=== PATIENT | female | born 1935 | race Caucasian/White ===

== ENCOUNTER 2016-06-19 20:17 | Emergency (ER) | payer MEDICARE ==
--- NOTE | 2016-06-19 21:15 | ERPHSYRPT ---
- History of Present Illness Time Seen by Provider: 06/19/16 21:13 Source: patient Exam Limitations: no limitations Patient Subjective Stated Complaint: ON WEDNESDAY (3 DAYS AGO) PT DROPPED A VACUUM ON HER LEFT FOOT AND IT BEGAN HURTING TODAY AT AREA OF INJURY WELL PAIN INTO THE CALF. Triage Nursing Assessment: PT AMBULATORY TO EXAM ROOM, PT IS AOX3, RESPS EASY AND NON LABORED, PT IS PINK WARM AND DRY, NO TENTING NOTED TO THE SKIN, ISOLATED AREA OF SWELLING TO THE ANTERIOR LEFT FOOT, PEDAL PULSES PRESENT BILATERALLY Physician History: The patient is an 81-year-old female complaining of left foot pain for 3 days. 3 days ago she dropped a vacuum apparatus cleaner on the end of her left foot. She said it didn't hurt very much at the time. It is now beginning to hurt. She is on blood thinners and had compartment syndrome in the past. She is worried about compartment syndrome. After the injury she continued to walk on it as usual. Her past medical history is noncontributory except for the possible blood thinners. Method of Injury: direct blow Occurred: days ago (3) Quality: intermittent, aching Severity of Pain-Max: moderate Severity of Pain-Current: moderate Lower Extremities Pain: ankle: left Modifying Factors: Improves With: nothing Associated Symptoms: none Allergies/Adverse Reactions: Penicillins Allergy (Verified 06/19/16 20:42) Sulfa (Sulfonamide Antibiotics) Allergy (Verified 06/19/16 20:42) Home Medications: Aspirin EC 81 mg [Ecotrin 81 mg] 81 mg PO DAILY 10/03/12 [History] Levothyroxine Sodium 100 Mcg [Synthroid 100 Mcg] 112 mcg PO DAILY 10/03/12 [History] Metoprolol Succinate 25 mg Xl* [Toprol-Xl 25MG Tablets] 25 mg PO BID [History] Warfarin Sodium 2.5 mg [Coumadin 2.5 MG] 2.5 mg PO UD 10/03/12 [History] Warfarin Sodium 5 mg [Coumadin 5 MG] 5 mg PO UD 10/03/12 [History] Amlodipine Besylate [Norvasc] 2.5 mg PO DAILY 07/02/15 [History] Hx Tetanus, Diphtheria Vaccination/Date Given: No Hx Influenza Vaccination/Date Given: Yes Hx Pneumococcal Vaccination/Date Given: Yes - Review of Systems Constitutional: No Fever, No Chills Eyes: No Symptoms Ears, Nose, & Throat: No Symptoms Respiratory: No Cough, No Dyspnea Cardiac: No Chest Pain, No Edema, No Syncope Abdominal/Gastrointestinal: No Abdominal Pain, No Nausea, No Vomiting, No Diarrhea Genitourinary Symptoms: No Dysuria Musculoskeletal: Injury Skin: No Rash Neurological: No Dizziness, No Focal Weakness, No Sensory Changes Psychological: No Symptoms Endocrine: No Symptoms Hematologic/Lymphatic: No Symptoms Immunological/Allergic: No Symptoms All Other Systems: Reviewed and Negative - Past Medical History Pertinent Past Medical History: Yes Neurological History: TIA Cardiac History: Arrhythmia, High Cholesterol, Hypertension Endocrine Medical History: Hypothyroidism, Other Musculoskeletal History: Arthritis Other Medical History: MITRAL VALVE PROLAPSE, HODGKINS LYMPHOMA - Past Surgical History Past Surgical History: Yes Cardiac: Cardiac Catheterization Gastrointestinal: Appendectomy Musculoskeletal: Orthopedic Surgery Female Surgical History: Hysterectomy Other Surgical History: tonsillectomy - Social History Smoking Status: Never smoker Exposure to second hand smoke: No Drug Use: none Patient Lives Alone: Yes Significant Family History: no pertinent family hx - Nursing Vital Signs Nursing Vital Signs: Initial Vital Signs Temperature 97.6 F Temperature Source Oral Pulse Rate 77 Respiratory Rate 16 Blood Pressure [Right Arm] 150/75 Pain Intensity 1 - Physical Exam General Appearance: alert Eyes, Ears, Nose, Throat Exam: moist mucous membranes Neck Exam: non-tender, supple Cardiovascular/Respiratory Exam: chest non-tender, normal breath sounds, regular rate/rhythm, no respiratory distress Gastrointestinal/Abdominal Exam: non-tender, guarding Back Exam: normal inspection, No vertebral tenderness Hips Exam: bilateral: non-tender Legs Exam: bilateral leg: non-tender Knees Exam: bilateral knee: non-tender Ankle Exam: bilateral ankle: non-tender Foot Exam: right foot: non-tender, left foot: ecchymosis, pain, soft tissue tenderness Neuro/Tendon Exam: normal sensation, normal motor functions Mental Status Exam: alert, oriented x 3, cooperative Skin Exam: normal color, warm, dry SpO2 Interpretation: normal SpO2: 96 Oxygen Delivery: Room Air - Radiology Exams Left Foot X-ray Interpretation: Interpreted by me, Negative, No Fracture Ordered Tests: Active Orders 24 hr Category Date Time Status FOOT (MINIMUM 3 VIEWS) Stat Exams 06/19/16 21:15 Taken - Progress Progress: unchanged Counseled pt/family regarding: rad results - Departure Time of Disposition: 21:57 Departure Disposition: Home Clinical Impression: Foot contusion Condition: Stable Critical Care Time: No Additional Instructions: Tylenol as needed.
[2016-06-19 22:06] VITALS: BP 151/94; PULSE 74; O2SAT 98
--- NOTE | 2016-06-20 08:54 | XRAY ---
Indication: Third-fifth toe crush injury. Comparison: None 3 nonweightbearing views of the left foot demonstrates mild osteopenia, small plantar heel spur, and mild degenerative changes of the first metatarsocuneiform articulation. No other bony, articular, or soft tissue abnormalities.
== END 2016-06-19 22:05 | disposition home or self-care (01) ==
LOC: ED 20:17
DX: S90.32XA Contusion of left foot, initial encounter (principal); W20.8XXA Other cause of strike by thrown, projected or falling object, initial encounter; M79.662 Pain in left lower leg; Z79.01 Long term (current) use of anticoagulants; Z79.899 Other long term (current) drug therapy
CPT/HCPCS: 73630; 99282

== ENCOUNTER 2016-09-29 12:21 | Observation (INO) | payer MEDICARE ==
--- NOTE | 2016-09-29 13:02 | ERPHSYRPT ---
- History of Present Illness Time Seen by Provider: 09/29/16 12:40 Source: patient Exam Limitations: clinical condition Patient Subjective Stated Complaint: PT REPORTS SHE WAS WATCHING TV WHEN VISION CHANGED ET SHE COULDN'T SPEAK CORRECTLY-STATES THAT SHE COULDN'T SAY THE RIGHT WORDS-DENIES PAIN-DENIES NUMBNESS OR TINLGING-STATES THAT HER SPEECH IS BETTER NOW-INCIDENT HAPPENED JAN 1.5 HR AGO Triage Nursing Assessment: PT PALE WARM ET [id number] QUESTIONS CORRECTLY-PUPILS PINPOINT-NO ARM DRIFT NOTED-SLIGHT RIGHT FACIAL DROOP NOTED- SLIGHTLY SLURRED SPEECH NOTED-PT AMBULTORY TO ED Physician History: PATIENT WITH HISTORY OF HYPERTENSION, TRANSIENT ISCHEMIC ATTACKS COMPLAINS OF ACUTE ONSET 2 HOURS PREVIOUS TO ADMISSION OF VISUAL CHANGES, DSYARTHIA, SLURRED SPEECH AND NUMBNESS IN LEFT HAND. DENIES HEADACHE, FOCAL WEAKNESS IN EXTREMTIES. Timing/Duration: hour(s) Severity: moderate Character of Deficits: impaired speech, vision problems Deficits: no difficulties (SPEECH IMPROVING) Baseline/Normal Cognition: alert oriented x 3 Current Cognition: alert oriented x 3 Baseline Gait: walks w/o assistance Associated Symptoms: paresthesia (LEFT HAND) Allergies/Adverse Reactions: Penicillins Allergy (Verified 09/29/16 12:36) Sulfa (Sulfonamide Antibiotics) Allergy (Verified 09/29/16 12:36) Home Medications: Aspirin EC 81 mg [Ecotrin 81 mg] 81 mg PO DAILY 10/03/12 [History] Levothyroxine Sodium 100 Mcg [Synthroid 100 Mcg] 112 mcg PO DAILY 10/03/12 [History] Metoprolol Succinate 25 mg Xl* [Toprol-Xl 25MG Tablets] 25 mg PO BID [History] Warfarin Sodium 2.5 mg [Coumadin 2.5 MG] 2.5 mg PO UD 10/03/12 [History] Warfarin Sodium 5 mg [Coumadin 5 MG] 5 mg PO UD 10/03/12 [History] Amlodipine Besylate [Norvasc] 2.5 mg PO DAILY 07/02/15 [History] Hx Tetanus, Diphtheria Vaccination/Date Given: No Hx Influenza Vaccination/Date Given: Yes Hx Pneumococcal Vaccination/Date Given: Yes Immunizations Up to Date: Yes - Review of Systems Constitutional: No Fever, No Chills Eyes: Vision Changes Ears, Nose, & Throat: No Symptoms Respiratory: No Symptoms, No Cough, No Dyspnea Cardiac: No Symptoms, No Chest Pain, No Edema, No Syncope Abdominal/Gastrointestinal: No Symptoms, No Abdominal Pain, No Nausea, No Vomiting, No Diarrhea Genitourinary Symptoms: No Symptoms, No Dysuria Musculoskeletal: No Symptoms, No Back Pain, No Neck Pain Skin: No Symptoms, No Rash Neurological: No Dizziness, No Focal Weakness, No Sensory Changes Psychological: No Symptoms Endocrine: No Symptoms All Other Systems: Reviewed and Negative - Past Medical History Pertinent Past Medical History: Yes Neurological History: TIA Cardiac History: Arrhythmia, High Cholesterol, Hypertension Endocrine Medical History: Hypothyroidism, Other Musculoskeletal History: Arthritis Other Medical History: MITRAL VALVE PROLAPSE, HODGKINS LYMPHOMA - Past Surgical History Past Surgical History: Yes Cardiac: Cardiac Catheterization Gastrointestinal: Appendectomy Musculoskeletal: Orthopedic Surgery Female Surgical History: Hysterectomy Other Surgical History: tonsillectomy - Social History Smoking Status: Never smoker Exposure to second hand smoke: No Drug Use: none Patient Lives Alone: Yes Significant Family History: no pertinent family hx - Nursing Vital Signs Nursing Vital Signs: Initial Vital Signs Temperature 98.1 F Temperature Source Oral Pulse Rate 70 Respiratory Rate 20 Blood Pressure [] 145/82 Pain Intensity 0 - Kd Coma Scale Best Eye Response ([place]): (4) open spontaneously Best Verbal Response (Kd): (5) oriented Best Motor Response (Kd): (6) obeys commands [place] Total: 15 - Physical Exam General Appearance: no apparent distress, alert Eye Exam: bilateral eye: normal inspection, PERRL, EOMI Ears, Nose, Throat Exam: normal ENT inspection, moist mucous membranes Neck Exam: normal inspection, non-tender, supple Respiratory: normal breath sounds, lungs clear, airway intact, No respiratory distress Cardiovascular: regular rate/rhythm, No edema Gastrointestinal: soft, normal bowel sounds, No tenderness, No distention Back Exam: normal inspection Extremity Exam: normal inspection, No pedal edema Peripheral Pulses: carotid (R): 2+, carotid (L): 2+, femoral (R): 2+, femoral (L ): 2+, dorsalis-pedis (R): 2+ Mental Status: alert, oriented x 3 sports centre manager Exam: normal hearing, normal speech, PERRL, tongue midline Coordination/Gait: normal finger to nose, normal gait Skin Exam: normal color, warm, dry, No rash SpO2 Interpretation: normal SpO2: 96 Oxygen Delivery: Room Air - Course EKG Interpreted by Me: RATE, Sinus Rhythm, NORMAL AXIS (RATE OF 75), 1st degree AV Block - Radiology Exams Chest X-ray Interpretation: Reviewed by me, Negative - CT Exams Head CT Interpretation: Discussed w/radiologist, No/Intracranial Hemorrhag (THERE IS A NEW ASYMMETRIC HAZY OPACIFICATION IS SEEN THROUGHOUT THE MAJORITY OF THE LEFT MASTOID AIR CELLS) Ordered Tests: Active Orders 24 hr Category Date Time Status Up With Assistance ROUTINE Activity 09/29/16 14:20 Ordered Admission/Status Order ROUTINE Care 09/29/16 14:21 Ordered Call Admit Doctor for Orders ON ADMISSION Care 09/29/16 14:21 Ordered Student Loan Counselor STAT Care 09/29/16 12:53 Active Code Status Order ROUTINE Care 09/29/16 14:21 Ordered EKG-ER Only STAT Care 09/29/16 12:53 Active IV Care Q6H Care 09/29/16 14:21 Ordered IV Insertion STAT Care 09/29/16 12:53 Active Neuro Checks Q2H Care 09/29/16 14:20 Ordered Telemetry ROUTINE Care 09/29/16 14:20 Ordered Vital Signs Q4H Care 09/29/16 14:20 Ordered Low Sodium Diet 09/29/16 Dinner Ordered CHEST 1 VIEW (PORTABLE) Stat Exams 09/29/16 12:53 Completed HEAD WITHOUT CONTRAST [CT] Stat Exams 09/29/16 12:54 Completed BLOOD CULTURE Stat Lab 09/29/16 14:13 Ordered CBC W DIFF Stat Lab 09/29/16 12:30 Completed CMP Stat Lab 09/29/16 12:30 Completed MAG [MAGNESIUM] Stat Lab 09/29/16 12:30 Completed PROTIME WITH INR Stat Lab 09/29/16 12:30 Completed TROPONIN Q3H Lab 09/29/16 12:30 Completed TROPONIN Q3H Lab 09/29/16 16:00 Ordered TROPONIN Q3H Lab 09/29/16 19:00 Ordered TROPONIN Q3H Lab 09/29/16 22:00 Ordered TROPONIN Q3H Lab 09/30/16 01:00 Ordered UA W/RFX UR CULTURE Stat Lab 09/29/16 12:30 Completed Transfer Order Routine Transfer 09/29/16 14:20 Ordered Medication Summary Generic Name Dose Route Start Last Admin Trade Name Freq PRN Reason Stop Dose Admin Acetaminophen 650 mg 09/29/16 14:20 Tylenol 325 Mg PO 10/29/16 14:19 Q4H PRN PRN PAIN AND/OR FEVER Amlodipine Besylate 2.5 mg 09/30/16 10:00 Norvasc 5 Mg PO 10/30/16 09:59 QAM WILLIE Aspirin 81 mg 09/30/16 10:00 Ecotrin 81 Mg PO 10/30/16 09:59 DAILY WILLIE Sodium Chloride 1,000 mls @ 50 mls/hr 09/29/16 13:00 09/29/16 13:06 Sodium Chloride 0.9% 1000 Ml IV 10/29/16 12:59 100 mls/hr .Q20H WILLIE Administration Levofloxacin/Dextrose 500 mg in 100 mls @ 100 mls/hr 09/29/16 14:14 09/29/16 14:22 Levofloxacin 500mg/100ml D5w IV 09/29/16 15:13 100 mls/hr STAT STA Administration Discontinued Medications Generic Name Dose Route Start Last Admin Trade Name Zohaib PRN Reason Stop Dose Admin Levofloxacin/Dextrose Confirm 09/29/16 14:17 Levofloxacin 500mg/100ml D5w Administered 09/29/16 14:18 Dose 500 mg in 100 mls @ ud IV .[facility] Lab/Rad Data: Laboratory Result Diagrams 09/29/16 12:30 09/29/16 12:30 Laboratory Results 09/29/16 09/29/16 09/29/16 Range/Units 12:30 12:30 12:30 WBC (4.0-10.5) K/mm3 RBC (4.1-5.4) M/mm3 Hgb (12.0-16.0) gm/dl Hct (35-47) % MCV (78-100) fl MCH (26-32) pg MCHC (32-36) g/dl RDW (11.5-14.0) % Plt Count (150-450) K/mm3 MPV (6-9.5) fl Gran % (36.0-66.0) % Lymphocytes % (24.0-44.0) % Monocytes % (0.0-12.0) % Eosinophils % (0.00-5.0) % Basophils % (0.0-0.4) % Basophils # (0-0.4) INR 2.01 (0.8-3.0) Sodium (136-145) mEq/L Potassium (3.5-5.1) mEq/L Chloride (98-107) mEq/L Carbon Dioxide (21-32) mEq/L Anion Gap (5-15) MEQ/L BUN (9-20) mg/dL Creatinine (0.55-1.30) mg/dl Estimated GFR ML/MIN Glucose (70-110) MG/DL Calcium (8.5-10.1) mg/dL Magnesium 2.0 (1.8-2.4) mg/dL Total Bilirubin (0.2-1.0) mg/dL AST (15-37) U/L ALT (12-78) U/L Alkaline Phosphatase (46-116) U/L Troponin I < 0.017 (0.000-0.056) ng/ml Serum Total Protein (6.4-8.2) gm/dL Albumin (3.4-5.0) g/dL Ur Collection Type Urine Color (YELLOW) Urine Appearance (CLEAR) Urine pH (5-6) Ur Specific [place] (1.005-1.025) Urine Protein (Negative) Urine Glucose (UA) (NEGATIVE) mg/dL Urine Ketones (NEGATIVE) Urine Nitrite (NEGATIVE) Urine Bilirubin (NEGATIVE) Urine Urobilinogen (0-1) mg/dL Urine WBC (Auto) (NEGATIVE) Urine RBC (Auto) (0-5) Jeff/ul Specimen Received 09/29/16 09/29/16 09/29/16 Range/Units 12:30 12:30 12:30 WBC 8.8 (4.0-10.5) K/mm3 RBC 4.35 (4.1-5.4) M/mm3 Hgb 13.7 (12.0-16.0) gm/dl Hct 41.0 (35-47) % MCV 94.3 (78-100) fl MCH 31.5 (26-32) pg MCHC 33.4 (32-36) g/dl RDW 14.2 H (11.5-14.0) % Plt Count 240 (150-450) K/mm3 MPV 10.8 H (6-9.5) fl Gran % 59.9 (36.0-66.0) % Lymphocytes % 25.4 (24.0-44.0) % Monocytes % 12.5 H (0.0-12.0) % Eosinophils % 1.5 (0.00-5.0) % Basophils % 0.7 (0.0-0.4) % Basophils # 0.06 (0-0.4) INR (0.8-3.0) Sodium 139 (136-145) mEq/L Potassium 4.1 (3.5-5.1) mEq/L Chloride 104 (98-107) mEq/L Carbon Dioxide 25.7 (21-32) mEq/L Anion Gap 13.7 (5-15) MEQ/L BUN 15 (9-20) mg/dL Creatinine 0.87 (0.55-1.30) mg/dl Estimated GFR > 60 ML/MIN Glucose 106 (70-110) MG/DL Calcium 9.3 (8.5-10.1) mg/dL Magnesium (1.8-2.4) mg/dL Total Bilirubin 0.70 (0.2-1.0) mg/dL AST 25 (15-37) U/L ALT 28 (12-78) U/L Alkaline Phosphatase 74 (46-116) U/L Troponin I (0.000-0.056) ng/ml Serum Total Protein 7.1 (6.4-8.2) gm/dL Albumin 3.5 (3.4-5.0) g/dL Ur Collection Type VOID Urine Color YELLOW (YELLOW) Urine Appearance CLEAR (CLEAR) Urine pH 7.0 (5-6) Ur Specific [place] 1.015 (1.005-1.025) Urine Protein NEGATIVE (Negative) Urine Glucose (UA) NEGATIVE (NEGATIVE) mg/dL Urine Ketones NEGATIVE (NEGATIVE) Urine Nitrite NEGATIVE (NEGATIVE) Urine Bilirubin NEGATIVE (NEGATIVE) Urine Urobilinogen 0.2 (0-1) mg/dL Urine WBC (Auto) NEGATIVE (NEGATIVE) Urine RBC (Auto) NEGATIVE (0-5) Jeff/ul Specimen Received 09/29/16 1230 - Progress Progress Note: 09/29/16 14:17 PATIENT ADMINISTERED IV LEVAQUIN 500MG AFTER 2 SETS OF BLOOD CULTURES OBTAINED Discussed with Dr.: Armas (DISCUSSED WITH DR ARMAS AT 1405 FOR ADMISSION) - Departure Time of Disposition: 14:25 Departure Disposition: Observation Clinical Impression: TRANSIENT ISCHEMIA ATTACK, LEFT MASTOIDITIS Condition: Stable Critical Care Time: No Referrals: KIERSTEN ARMAS [Primary Care Provider] -
[2016-09-29] MEDS: Sodium Chloride 0.9% 1000 ML 1,000 ML IV SCH (13:06)
[2016-09-29 13:07] LABS: INR 2.01 (0.8-3.0); PROTIME 22.1 SECONDS (9.95-12.35)
[2016-09-29 13:08] LABS: BASOPHIL % 0.7 % (0.0-0.4); Eosinophil % 1.5 % (0.00-5.0); Granulocytes % 59.9 % (36.0-66.0); Lymphocytes % 25.4 % (24.0-44.0); Mean Cell Volume 94.3 fl (78-100); Mean Corpuscular Hemoglobin 31.5 pg (26-32); Mean Platelet Volume 10.8 fl (6-9.5); Monocytes % 12.5 % (0.0-12.0); Platelet Count 240 K/mm3 (150-450); Red Blood Count 4.35 M/mm3 (4.1-5.4); Red Cell Distribution Width 14.2 % (11.5-14.0); White Blood Count 8.8 K/mm3 (4.0-10.5)
[2016-09-29 13:17] LABS: ALBUMIN 3.5 g/dL (3.4-5.0); ALKALINE PHOSPHATASE 74 U/L (46-116); ANION GAP 13.7 MEQ/L (5-15); BLOOD UREA NITROGEN 15 mg/dL (9-20); CHLORIDE 104 mEq/L (98-107); Carbon Dioxide 25.7 mEq/L (21-32); Glucose 106 MG/DL (70-110); Potassium 4.1 mEq/L (3.5-5.1); SGOT/AST 25 U/L (15-37); SGPT/ALT 28 U/L (12-78); SODIUM 139 mEq/L (136-145); Total Protein 7.1 gm/dL (6.4-8.2)
--- NOTE | 2016-09-29 13:43 | XRAY ---
Exam: AP upright portable chest film from 1:05 PM on 09/29/2016. Comparison: AP upright portable chest film from 10/03/2012. Indication: Dyspnea. Findings: The transverse heart size is normal. A few small granulomatous calcifications are seen adjacent to the aortic knob on the left and within the right upper lung field. These are unchanged. There is some mild chronic central bronchial wall thickening present. Also, chronic right apical pleural/parenchymal scarring is seen representing no change from 2013. No acute air space infiltrates, vascular congestion, pneumothorax, or pleural fluid is seen. The visualized bones appear grossly intact. Impression: 1. No focal pneumonic infiltrates, heart failure/pulmonary edema, or other acute cardiopulmonary disease is seen. 2. Some chronic findings are seen as discussed above.
[2016-09-29 13:54] LABS: ADD URINE CULTURE? NO (NO); COMPLETE URINE MICROSCOPIC? NO; Collection Type VOID
--- NOTE | 2016-09-29 14:00 | XRAY ---
Exam: CT of the head without IV contrast from 09/29/2016. CTDI: 70.10 Comparison: CT of the head without and with IV contrast from 03/23/2016. Indication: Slurred speech, blurred vision, pain on left side of head as well as on top of head. Technique: Non-IV contrast axial images were obtained through the brain. Reconstructed coronal and sagittal images were created and reviewed. Findings: The ventricles are of unremarkable size and configuration representing no change. Small bilateral basal ganglia calcifications are again seen. No acute intracranial bleed or abnormal extra-axial fluid collection is seen. There is some scattered decreased attenuation within the periventricular and subcortical white matter bilaterally suggestive of chronic small vessel ischemic disease. This appears similar to 03/23/2016. A new discrete low-attenuation density to suggest an acute focal or territorial infarct is not seen. Atherosclerotic vascular calcification is seen within the carotid siphons as well as the distal left vertebral artery. The calvarium of the skull appears intact. The visualized paranasal sinuses remain clear. However, there is some new hazy opacification throughout the majority of the left mastoid air cells as compared to 03/23/2016. This could be due to some left mastoid effusion or mastoiditis. Correlate clinically. The mastoid air cells on the right are well-aerated. The globes of each eye, optic nerves, and visualized extraocular muscles appear grossly unremarkable. Impression: 1. I see no acute intracranial bleed or new low attenuation density to suggest an acute infarct. 2. New asymmetric hazy opacification is seen throughout the majority of the left mastoid air cells which may be due to mastoid effusion or mastoiditis. Correlate clinically. 3. Some chronic small vessel ischemic is is again seen representing no change from 03/23/2016.
[2016-09-29] MEDS ORDERED: Levofloxacin 500MG/100ML D5W 500 MG/100 ML BAG IV STA (14:14)
[2016-09-29] MEDS ORDERED: Levofloxacin 500MG/100ML D5W 500 MG/100 ML BAG IV ONE (14:17)
[2016-09-29] MEDS ORDERED: TYLENOL 325 MG PO PRN (14:20)
[2016-09-29] MEDS ORDERED: Coumadin 2.5 MG PO SCH (18:00)
[2016-09-29] MEDS ORDERED: Coumadin 5 MG*** 5 MG, Coumadin 2.5 MG*** 2.5 MG PO SCH ×2 (18:00)
[2016-09-29] MEDS: Toprol-Xl 25MG Tablets PO SCH (21:46)
[2016-09-30] MEDS: Sodium Chloride 0.9% 1000 ML 1,000 ML IV SCH (04:02)
[2016-09-30 07:04] VITALS: O2SAT 97
--- NOTE | 2016-09-30 08:43 | PCM.SSS ---
History of Present Illness - Chief Complaint Chief Complaint: ?TIA History of Present Illness: is a 81 year old female pt of mine from [facility], with afib and mild HTN but very active, who had an episode yesterday with visual changes and dysphasia. She was watching TV after doing a bit of work at home and her vision looked like "tire treads." Then she was talking but the words that came out were not the words that she intended. No paresthesias, no weakness. This lasted perhaps half an hour; by the time she got to the ER it was resolved. This has happened occasionally in the past and she had an MRI brain over a year ago with no finding that she is aware of. - Review of Systems Eyes: Vision Changes Ears, Nose, & Throat: Ear Pain (improved but some popping and discomfort (L)) Neurological: Speech Changes All Other Systems: Reviewed and Negative Medications & Allergies Home Medications: Home Medication List Aspirin EC 81 mg [Ecotrin 81 mg] 81 mg PO DAILY 10/03/12 [History Confirmed 09/29/16] Levothyroxine Sodium 100 Mcg [Synthroid 100 Mcg] 112 mcg PO DAILY 10/03/12 [History Confirmed 09/29/16] Metoprolol Succinate 25 mg Xl* [Toprol-Xl 25MG Tablets] 25 mg PO BID [History Confirmed 09/29/16] Warfarin Sodium 2.5 mg [Coumadin 2.5 MG] 2.5 mg PO UD 10/03/12 [History Confirmed 09/29/16] Warfarin Sodium 5 mg [Coumadin 5 MG] 5 mg PO UD 10/03/12 [History Confirmed 09/29/16] Amlodipine Besylate [Norvasc] 2.5 mg PO DAILY 07/02/15 [History Confirmed ] Allergies/Adverse Reactions: Allergies Allergy/AdvReac Type Severity Reaction Status Date / Time Penicillins Allergy Verified 09/29/16 12:36 Sulfa (Sulfonamide Allergy Verified 09/29/16 12:36 Antibiotics) - Past Medical History Past Medical History: Yes Neurological History: TIA Cardiac History: Arrhythmia, High Cholesterol, Hypertension Respiratory History: No Pertinent History Endocrine Medical History: Hypothyroidism, Other Musculoskelatal History: Arthritis GI Medical History: Gallbladder Disease Comment: MITRAL VALVE PROLAPSE, HODGKINS LYMPHOMA, breast reduction, oophroectomy, hystrectomy, hand surgery, 4 heart cath - Female History Hx Last Menstrual Period: postmenopausal Are you now?: No - Past Surgical History Past Surgical History: Yes Cardiac History: Cardiac Catheterization GI Surgical History: Appendectomy Musculskeletal Surgical Hx: Orthopedic Surgery Female Surgical History: Hysterectomy Other Surgical History: tonsillectomy - Social History Smoking Status: Never smoker Exposure to second hand smoke: No Alcohol: None Drug Use: none Significant Family History: no pertinent family hx - Physical Exam Vital Signs: Vital Signs - 24 hr Temp Pulse Resp BP Pulse Ox 09/30/16 07:03 97.8 F 65 20 107/55 97 09/30/16 04:40 97.6 F 67 18 118/56 95 09/30/16 04:00 97.6 F 67 18 118/56 95 09/29/16 23:45 97.7 F 74 18 111/60 95 09/29/16 20:00 97.7 F 71 20 141/72 96 09/29/16 17:09 98 F 69 22 148/72 93 L 09/29/16 14:43 98 F 76 20 103/98 95 09/29/16 14:25 96 09/29/16 13:50 70 20 145/82 98 09/29/16 13:16 80 20 97 09/29/16 12:33 98.1 F 76 18 155/94 96 09/29/16 12:32 98.1 F 76 18 155/94 96 General Appearance: no apparent distress Neurologic Exam: alert, oriented x 3, cooperative, photo mask cleaner II-XII nml as tested Eye Exam: PERRL/EOMI, eyes nml inspection Ears, Nose, Throat Exam: other (R TM obscured by wax; L TM wnl. no mastoid tenderness on L) Neck Exam: normal inspection, non-tender, No lymphadenopathy Respiratory Exam: normal breath sounds, lungs clear, No crackles/rales, No rhonchi, No wheezing Cardiovascular Exam: regular rate/rhythm, normal heart sounds, No murmur Gastrointestinal/Abdomen Exam: soft, normal bowel sounds, No tenderness, No distention Extremity Exam: normal inspection, No pedal edema, No swelling Skin Exam: normal color, warm, dry Results - Labs Lab/Micro Results: Lab Results-Last 24 Hours 09/29/16 09/29/16 09/29/16 Range/Units 16:11 19:15 22:19 Troponin I < 0.017 < 0.017 < 0.017 (0.000-0.056) ng/ml 09/30/16 Range/Units 01:15 Troponin I < 0.017 (0.000-0.056) ng/ml - Radiology Impressions Radiology Exams & Impressions: Radiology Procedures Category Date Time Status CAROTID BILATERAL [US] Routine Exams 09/30/16 08:00 Ordered ECHO W/2D AND DOPPLER [US] Routine Exams 09/30/16 08:00 Ordered Assessment/Plan (1) Transient ischemic attack (TIA) Current Visit: Yes Status: Acute Assessment & Plan: possible. CT in ER without acute changes. Doppler and echo ordered. Will do MRI, but pt will require sedation. Will consult with neurology outpatient. (2) Hypertension Current Visit: Yes Status: Acute Qualifiers: Hypertension type: essential hypertension Qualified Code(s): I10 - Essential (primary) hypertension Assessment & Plan: stable on current meds. A bit low this morning at 107/55 but pt is asymptomatic. Code(s): I10 - ESSENTIAL (PRIMARY) HYPERTENSION Hospital Summary - Hospital Course Hospital Course: Pt admitted with possible TIA symptoms including visual changes and speech changes, which resolved in 30 minutes. Dopper carotids, echo, and MRI to be done. F/u outpatient with neurology. - Vitals & Intake/Output Vital Signs: Vital Signs Temperature 97.8 F 09/30/16 07:03 Pulse Rate 65 09/30/16 07:03 Respiratory Rate 20 09/30/16 07:03 Blood Pressure 107/55 09/30/16 07:03 O2 Sat by Pulse Oximetry 97 09/30/16 07:03 Intake & Output: Intake & Output 09/27/16 09/28/16 09/29/16 09/30/16 11:59 11:59 11:59 11:59 Intake Total 1167 Output Total 2250 Balance -1083 Weight 71.668 kg - Lab Result Diagrams: 09/29/16 12:30 09/29/16 12:30 Lab Results-Last 24 Hrs: Lab Results-Last 24 Hours 09/29/16 09/29/16 09/29/16 Range/Units 16:11 19:15 22:19 Troponin I < 0.017 < 0.017 < 0.017 (0.000-0.056) ng/ml 09/30/16 Range/Units 01:15 Troponin I < 0.017 (0.000-0.056) ng/ml - Radiology Exams Ordered Rad Exams-Entire Visit: Radiology Procedures Category Date Time Status CAROTID BILATERAL [US] Routine Exams 09/30/16 08:00 Ordered ECHO W/2D AND DOPPLER [US] Routine Exams 09/30/16 08:00 Ordered - Discharge Disposition: Home, Self-Care Condition: Stable Prescriptions: No Action Metoprolol Succinate 25 mg Xl* [Toprol-Xl 25MG Tablets] 25 mg PO BID Aspirin EC 81 mg [Ecotrin 81 mg] 81 mg PO DAILY Levothyroxine Sodium 100 Mcg [Synthroid 100 Mcg] 112 mcg PO DAILY Warfarin Sodium 2.5 mg [Coumadin 2.5 MG] 2.5 mg PO UD Warfarin Sodium 5 mg [Coumadin 5 MG] 5 mg PO UD Amlodipine Besylate [Norvasc] 2.5 mg PO DAILY Follow up with: KIERSTEN HELMS [Primary Care Provider] -
[2016-09-30] MEDS ORDERED: Ativan 2 MG/1 ML VIAL IV ONE (08:56)
[2016-09-30] MEDS: Toprol-Xl 25MG Tablets PO SCH (09:54)
[2016-09-30] MEDS ORDERED: SYNTHROID 112 MCG PO SCH (10:00)
[2016-09-30] MEDS ORDERED: ECOTRIN 81 MG PO SCH (10:00)
[2016-09-30] MEDS ORDERED: Levofloxacin 500MG/100ML D5W 500 MG/100 ML BAG IV SCH (10:00)
[2016-09-30] MEDS ORDERED: SYNTHROID 100 MCG PO SCH (10:00)
[2016-09-30] MEDS ORDERED: NORVASC 5 MG PO SCH (10:00)
[2016-09-30] MEDS ORDERED: Ativan 2 MG/1 ML VIAL IV PRN (13:39)
--- NOTE | 2016-09-30 14:14 | XRAY ---
Exam: Duplex Doppler carotid ultrasound from 09/30/2016. Comparison: Duplex Doppler carotid ultrasound from 11/12/2014. Indication: TIA. Findings: On the right side, there is noted to be some mild fibrocalcific plaque at the posterior aspect of the prior small right internal carotid artery. This appears slightly increased as compared to 11/12/2014. Color flow images were obtained. Peak systolic flow velocities in centimeters per second measure 86.0 within the common carotid artery, 88.6 within the external carotid artery, 43.5 within the proximal internal carotid artery, and 63.6 within the distal internal carotid artery. The peak systolic flow velocity ratio between the right internal carotid artery and common carotid artery is 0.7 which is not increased. The right vertebral artery reveals antegrade flow, although the peak systolic flow velocity appears mildly decreased at 22.6 cm/s. This measured 44.3 cm/s on the exam from 11/12/2014. On the left side, there is some tortuosity of the common carotid artery. Minimal fibrous plaque is seen about both the anterior and posterior aspects of the carotid bulb. Color flow images were obtained as well. Peak systolic flow velocities in centimeters per second measure 76.8 within the common carotid artery, 63.6 within the external carotid artery, 52.6 within the proximal internal carotid artery, and 66.3 within the distal internal carotid artery. The peak systolic flow velocity ratio between the internal carotid artery and common carotid artery measures 0.9 which is also not increased. The left vertebral artery reveals antegrade flow with a peak systolic flow velocity of 42.4 cm/s. Impression: 1. No hemodynamically significant stenosis of 50% or greater diameter reduction is seen within either carotid artery. Fibrocalcific plaque at the posterior aspect of the proximal right internal carotid artery is mildly increased as compared to 11/12/2014. Otherwise, the carotid arteries appears similar to the previous study. 2. Both vertebral arteries reveal antegrade flow. There appears to be some mild decreased systolic flow velocity within the right vertebral artery as compared to the prior study. This measures 22.6 cm/s on the current study versus 44.3 cm/s on the previous study.
--- NOTE | 2016-09-30 15:55 | XRAY ---
Exam: MRI of the brain without and with 13 ML's of IV Magnevist from 09/30/2016. Comparison: CT of the head without IV contrast from 09/29/2016. Indication: Visual disturbances, speech issues, no extremity weakness, left ear pain. Technique: Multiplanar, multisequence MRI imaging through the brain was obtained both before and following IV contrast administration of Magnevist per normal protocol. Findings: The ventricles are of unremarkable size and are midline. No focal mass effect or midline shift is seen. There is some increased bilateral periventricular and subcortical signal intensities on the axial T2 FLAIR images, and to a lesser extent, the axial T2 propeller images. These findings are most likely due to chronic small vessel ischemic disease. The diffusion weighted images reveal no evidence of focal restricted diffusion to suggest an acute/subacute infarct. Incidentally, there is a 9 mm in width smooth, oval-shaped low signal intensity within the inner table of the skull just to the right of midline within the occipital bone on axial image #7 of sequence 7. This is bright on the T2-weighted images and is seen on axial image #8 of series #4. I believe this represents a small nonspecific pacchonian granulation (same as arachnoid granulation) within the inner table. The seventh and eighth cranial nerve complexes appear unremarkable. The major central cerebral arteries reveal normal flow voids in the skull [place] of [place] and within the distal vertebral basilar system. Images of the brainstem and posterior fossa are otherwise unremarkable. No abnormal focal brain enhancement is seen on the post-IV contrast images. No abnormal extra-axial fluid collections are seen. The globes of each eye, extraocular muscles, and optic nerves appear unremarkable. Incidentally, the T2 weighted images reveal increased signal intensity throughout the left mastoid air cells. This is consistent with inflammation/effusion, or mastoiditis. Some minimal increased signal intensity is seen within a small portion of the right mastoid air cells as well. In addition, there appears to be a retention cyst within the inferior aspect of the left maxillary sinus measuring 17 mm x 10 mm in cross section on axial image #3 of series #4. The remainder of the paranasal sinuses appears unremarkable. Impression: 1. Moderate bilateral periventricular and subcortical chronic small vessel ischemic disease is seen. However, the diffusion weighted images reveal no foci of restricted diffusion to suggest an acute or subacute infarct. 2. There is increased signal intensity throughout the left mastoid air cells suggestive of fluid/inflammation, or mastoiditis. Correlate clinically. I believe there is also some minimal increased signal intensity within a small portion of the right mastoid air cells. 3. Moderate sized retention cyst at the inferior aspect of left maxillary sinus. 4. Incidentally, there appears to be a small pacchonion/arachnoid radiating into radiating ago granulation just to the right of midline within the occipital bone. I believe this is incidental. 5. No other abnormal brain signal intensities or enhancing lesions are seen.
[2016-09-30 16:15] VITALS: BP 125/63; PULSE 72
[2016-09-30] MEDS ORDERED: Coumadin 5 MG PO SCH (18:00)
== END 2016-09-30 17:20 | disposition home or self-care (01) ==
LOC: ED 12:21 → MED SURG 14:42
PROVIDERS: ADMIT Family Medicine; ATTEND Family Medicine
DX: G45.9 Transient cerebral ischemic attack, unspecified (principal); I10 Essential (primary) hypertension; E03.9 Hypothyroidism, unspecified; Z79.01 Long term (current) use of anticoagulants; I34.1 Nonrheumatic mitral (valve) prolapse; M19.90 Unspecified osteoarthritis, unspecified site; Z79.899 Other long term (current) drug therapy
CPT/HCPCS: 36000; 36415; 70450; 70553; 71010; 80053; 81002; 83735; 84484; 85025; 85610; 87040; 93005; 93041; 93306; 93880; 96360; 96365; 99285; J1956; J2060; A9270-GY

== ENCOUNTER 2016-10-25 20:39 | Emergency (ER) | payer MEDICARE ==
[2016-10-25 21:04] VITALS: BP 142/80
[2016-10-25] MEDS ORDERED: MORPHINE SULFATE 4 MG INJ IV ONE (21:39)
--- NOTE | 2016-10-25 21:44 | ERPHSYRPT ---
- History of Present Illness Time Seen by Provider: 10/25/16 21:32 Source: patient Exam Limitations: no limitations Patient Subjective Stated Complaint: pt was having a good day when she noted neck pain followed by neck stiffness no numbness in arms -decreased pain when laying still - no injury no fever or chills no vomiting Triage Nursing Assessment: pt is resting quietly able to answer questions Physician History: This is a 81-year-old white female with history of TIA arrhythmias hyperlipidemia high blood pressure hypothyroidism arthritis mitral valve prolapse and Hodgkin's lymphoma She arrives with complaint of pain in her posterior neck and bilateral neck worse with turning her neck she states it is now going up her posterior head symptoms began at 5:30 when she was getting into the car after eating dinner. Pain is definitely worse with turning her head from side to side she does seem to be able to bend her chin down to her chest without any problems she has no fevers no nausea no vomiting no chest pain no shortness of breath. She denies any movement disorders or sensory loss. Past medical history includes TIA, arrhythmia, hyperlipidemia, high blood pressure, hypothyroidism, arthritis, mitral valve prolapse, Hodgkin's lymphoma. Past surgical history includes cardiac catheter, appendectomy, orthopedic surgery, hysterectomy and tonsillectomy patient has also had a breast reduction Timing/Duration: today (5:30 PM) Severity: moderate Modifying Factors: Improves With: movement (worse with turning her head from side to side) Associated Symptoms: No nausea, No vomiting, No abdominal pain, No shortness of breath, No heartburn, No diaphoresis, No cough, No chills, No chest pain, No fever, No headaches, No loss of appetite, No malaise, No rash, No syncope, No seizure, No weakness Allergies/Adverse Reactions: nortriptyline Allergy (Verified 10/25/16 21:14) Penicillins Allergy (Verified 10/25/16 21:14) Sulfa (Sulfonamide Antibiotics) Allergy (Verified 10/25/16 21:14) Home Medications: Aspirin EC 81 mg [Ecotrin 81 mg] 81 mg PO DAILY 10/03/12 [History] Levothyroxine Sodium 100 Mcg [Synthroid 100 Mcg] 112 mcg PO DAILY 10/03/12 [History] Metoprolol Succinate 25 mg Xl* [Toprol-Xl 25MG Tablets] 25 mg PO BID [History] Warfarin Sodium 2.5 mg [Coumadin 2.5 MG] 2.5 mg PO UD 10/03/12 [History] Warfarin Sodium 5 mg [Coumadin 5 MG] 5 mg PO UD 10/03/12 [History] Amlodipine Besylate [Norvasc] 2.5 mg PO DAILY 07/02/15 [History] Hx Tetanus, Diphtheria Vaccination/Date Given: No Hx Influenza Vaccination/Date Given: Yes Hx Pneumococcal Vaccination/Date Given: Yes - Review of Systems Eyes: No Symptoms Ears, Nose, & Throat: No Symptoms Respiratory: No Cough, No Dyspnea Cardiac: No Chest Pain, No Edema, No Syncope Abdominal/Gastrointestinal: No Abdominal Pain, No Nausea, No Vomiting, No Diarrhea Genitourinary Symptoms: No Dysuria Musculoskeletal: Other (neck pain bilateral neck and posterior neck radiating up back of head worse with turning head from side to side) Skin: No Rash Neurological: No Dizziness, No Focal Weakness, No Sensory Changes Psychological: No Symptoms Endocrine: No Symptoms All Other Systems: Reviewed and Negative - Past Medical History Pertinent Past Medical History: Yes Neurological History: Migraines, TIA Cardiac History: Arrhythmia, High Cholesterol, Hypertension Respiratory History: No Pertinent History Endocrine Medical History: Hypothyroidism, Other Musculoskeletal History: Arthritis, Other GI Medical History: Gallbladder Disease Other Medical History: MITRAL VALVE PROLAPSE, HODGKINS LYMPHOMA 19 yrs ago , breast reduction, oophroectomy, hystrectomy, hand surgery, 4 heart cath recently diagnosed with ocular migraines ,sciatica - Past Surgical History Past Surgical History: Yes Cardiac: Cardiac Catheterization Gastrointestinal: Appendectomy Musculoskeletal: Orthopedic Surgery Female Surgical History: Hysterectomy, Other Other Surgical History: tonsillectomy left had surgery right knee injected breast reduction 25 yrs ago - Social History Smoking Status: Never smoker Exposure to second hand smoke: No Drug Use: none Patient Lives Alone: Yes Significant Family History: no pertinent family hx - Female History Hx Last Menstrual Period: na - Nursing Vital Signs Nursing Vital Signs: Initial Vital Signs Temperature 98.3 F Temperature Source Oral Pulse Rate 80 Respiratory Rate 16 Blood Pressure [] 142/80 Pain Intensity [] 9 Pain Intensity 6 - Physical Exam General Appearance: no apparent distress, alert Eye Exam: PERRL/EOMI, eyes nml inspection Ears, Nose, Throat Exam: normal ENT inspection, TMs normal, pharynx normal, moist mucous membranes Neck Exam: other (Neck tender posterioly and bilaterally with turning head from side ) Respiratory Exam: normal breath sounds, lungs clear, No respiratory distress Cardiovascular Exam: regular rate/rhythm, normal heart sounds, normal peripheral pulses Gastrointestinal/Abdomen Exam: soft Back Exam: normal inspection, normal range of motion, No CVA tenderness, No vertebral tenderness Extremity Exam: normal inspection, normal range of motion, pelvis stable Neurologic Exam: alert, oriented x 3, cooperative, normal mood/affect, nml cerebellar function, nml station & gait, sensation nml, No motor deficits SpO2 Interpretation: normal (94%) SpO2: 94 Oxygen Delivery: Room Air - Course Nursing assessment & vital signs reviewed: Yes EKG Interpreted by Me: RATE (80 bpm), NORMAL AXIS, 1st degree AV Block (ekg: sinus rhythm with 1 st degree av block , 80 bpm, normal axis , no acute st or t wave abnormalities noted. compared to 09/29/2016) - CT Exams Head CT Interpretation: Tele-radiologist Report (head CT: Age related changes without evidence of acute proces) Cervical Spine CT Interpretation: Tele-radiologist Report (CT C-spine: Impression: No fractures or dislocation or other acute . Multilevel spondylitic changes, severe fibrotic lung disease) Ordered Tests: Active Orders 24 hr Category Date Time Status EKG-ER Only STAT Care 10/25/16 21:37 Active IV Insertion STAT Care 10/25/16 21:37 Active CERVICAL SPINE WO CONTRAST [CT] Stat Exams 10/25/16 21:37 Taken HEAD WITHOUT CONTRAST [CT] Stat Exams 10/25/16 21:37 Taken CBC W DIFF Stat Lab 10/25/16 21:45 Completed CMP Stat Lab 10/25/16 21:45 Completed Manual Differential NC Stat Lab 10/25/16 21:45 Completed PROTIME WITH INR Stat Lab 10/25/16 21:45 Completed PTT Stat Lab 10/25/16 21:45 Completed SED RATE [Erythrocyte Sedimentation Rate] Stat Lab 10/25/16 21:45 Completed Medication Summary Discontinued Medications Generic Name Dose Route Start Last Admin Trade Name Freq PRN Reason Stop Dose Admin Morphine Sulfate 4 mg 10/25/16 21:39 10/25/16 21:59 Morphine Sulfate 4 Mg Inj IV 10/25/16 21:40 4 mg STAT ONE Administration Morphine Sulfate Confirm 10/25/16 21:52 Morphine Sulfate 4 Mg Inj Administered 10/25/16 21:53 Dose 4 mg .ROUTE .STK-MED ONE Lab/Rad Data: Laboratory Result Diagrams 10/25/16 21:45 10/25/16 21:45 Laboratory Results 10/25/16 10/25/16 10/25/16 Range/Units 21:45 21:45 21:45 WBC 10.9 H (4.0-10.5) K/mm3 RBC 4.20 (4.1-5.4) M/mm3 Hgb 13.3 (12.0-16.0) gm/dl Hct 39.3 (35-47) % MCV 93.6 (78-100) fl MCH 31.7 (26-32) pg MCHC 33.8 (32-36) g/dl RDW 13.9 (11.5-14.0) % Plt Count 214 (150-450) K/mm3 MPV 10.5 H (6-9.5) fl Segmented Neutrophils 63 (36.0-66.0) % Lymphocytes (Manual) 22 L (24-44) % Monocytes (Manual) 9 (0.0-12.0) % Eosinophils (Manual) 1 (0.00-3.0) % Differential Comment NORMAL Atypical Lymphocytes 5 % Platelet Estimate NORMAL (NORMAL) ESR 9 (0-20) mm/hr INR 3.53 H (0.8-3.0) APTT 46.9 H (25.3-37.0) SECONDS Sodium (136-145) mEq/L Potassium (3.5-5.1) mEq/L Chloride (98-107) mEq/L Carbon Dioxide (21-32) mEq/L Anion Gap (5-15) MEQ/L BUN (9-20) mg/dL Creatinine (0.55-1.30) mg/dl Estimated GFR ML/MIN Glucose (70-110) MG/DL Calcium (8.5-10.1) mg/dL Total Bilirubin (0.2-1.0) mg/dL AST (15-37) U/L ALT (12-78) U/L Alkaline Phosphatase (46-116) U/L Serum Total Protein (6.4-8.2) gm/dL Albumin (3.4-5.0) g/dL 10/25/16 Range/Units 21:45 WBC (4.0-10.5) K/mm3 RBC (4.1-5.4) M/mm3 Hgb (12.0-16.0) gm/dl Hct (35-47) % MCV (78-100) fl MCH (26-32) pg MCHC (32-36) g/dl RDW (11.5-14.0) % Plt Count (150-450) K/mm3 MPV (6-9.5) fl Segmented Neutrophils (36.0-66.0) % Lymphocytes (Manual) (24-44) % Monocytes (Manual) (0.0-12.0) % Eosinophils (Manual) (0.00-3.0) % Differential Comment Atypical Lymphocytes % Platelet Estimate (NORMAL) ESR (0-20) mm/hr INR (0.8-3.0) APTT (25.3-37.0) SECONDS Sodium 142 (136-145) mEq/L Potassium 3.9 (3.5-5.1) mEq/L Chloride 106 (98-107) mEq/L Carbon Dioxide 24.9 (21-32) mEq/L Anion Gap 14.9 (5-15) MEQ/L BUN 21 H (9-20) mg/dL Creatinine 1.00 (0.55-1.30) mg/dl Estimated GFR 56 ML/MIN Glucose 114 H (70-110) MG/DL Calcium 9.0 (8.5-10.1) mg/dL Total Bilirubin 0.40 (0.2-1.0) mg/dL AST 17 (15-37) U/L ALT 27 (12-78) U/L Alkaline Phosphatase 69 (46-116) U/L Serum Total Protein 6.7 (6.4-8.2) gm/dL Albumin 3.5 (3.4-5.0) g/dL - Progress Progress: improved Progress Note: 10/25/16 23:43 Patient improved but not completely pain-free after [address] of the head no acute changes CT C-spine no acute fractures or dislocations, multiple spondylitic changes, fibrotic lung disease. Patient's labs essentially normal sedimentation rate is 9 INR just over 3 Patient with pain when she turns her head from side to side. Will go ahead and have nurses place a soft collar on the patient. Will write for [facility] for pain. Patient to follow-up with her family doctor. - Departure Time of Disposition: 23:45 Departure Disposition: Home Clinical Impression: Neck pain, Arthritis, Anticoagulant long-term use Condition: Fair Critical Care Time: No Additional Instructions: Return home. [facility] 5/325 #12 one orally every 4-6 hours as needed for pain. Follow-up with your family doctor. Return for acute distress or for severe symptoms. Prescriptions: Hydrocodone/Acetaminophen [[facility] 5-325 Tablet] 1 tab PO Q4-6HPRN PRN #12 tablet PRN Reason: Pain
[2016-10-25 21:51] LABS: Mean Cell Volume 93.6 fl (78-100); Mean Corpuscular Hemoglobin 31.7 pg (26-32); Mean Platelet Volume 10.5 fl (6-9.5); Platelet Count 214 K/mm3 (150-450); Red Cell Distribution Width 13.9 % (11.5-14.0); White Blood Count 10.9 K/mm3 (4.0-10.5)
[2016-10-25] MEDS ORDERED: MORPHINE SULFATE 4 MG INJ ONE (21:52)
[2016-10-25 22:04] LABS: INR 3.53 (0.8-3.0); PROTIME 40.4 SECONDS (9.95-12.35)
[2016-10-25 22:07] LABS: PTT 46.9 SECONDS (25.3-37.0)
[2016-10-25 22:12] LABS: ALBUMIN 3.5 g/dL (3.4-5.0); ANION GAP 14.9 MEQ/L (5-15); BILIRUBIN,TOTAL 0.4 mg/dL (0.2-1.0); Carbon Dioxide 24.9 mEq/L (21-32); Potassium 3.9 mEq/L (3.5-5.1); Total Protein 6.7 gm/dL (6.4-8.2)
[2016-10-25 23:17] LABS: ATYPICAL LYMPHS 5 %; Eosinophil 1 % (0.00-3.0); Platelet Estimate NORMAL (NORMAL); Total Cells Counted 100
[2016-10-26] MEDS: NORCO 5/325 MG PO ONE ×2 (00:04→00:05)
[2016-10-26 00:28] VITALS: PULSE 76; O2SAT 97
[2016-10-26] MEDS ORDERED: NORCO 5/325 MG ONE (06:40)
--- NOTE | 2016-10-26 09:03 | XRAY ---
Indication: Sudden onset pain. Multiple contiguous axial images obtained through the head without contrast. Comparison: September 29, 2016. Stable age-appropriate global atrophy and mild periventricular degenerative micro-ischemia. No acute intracranial hemorrhage, abnormal extra-axial fluid collection, or mass effect. Fourth ventricle is midline. No hydrocephalus. Bony calvarium intact. Visualized paranasal sinuses and mastoid air cells are clear. Impression: Stable nonacute senile brain. Comment: Preliminary interpretation was made by [facility]. No discrepancy. CT DI 70.38
--- NOTE | 2016-10-26 09:07 | XRAY ---
Indication: Sudden onset neck pain/stiffness. Multiple contiguous axial images obtained through the cervical spine. Sagittal and coronal reformatted images obtained. Comparison: None. Axial images demonstrates age-related osteopenia. No acute fracture, suspicious bony lesions, or spinal canal stenosis. Mild multilevel bilateral degenerative facet arthropathy. Sagittal and coronal reformatted images demonstrates lordotic straightening, positional versus paraspinal spasm. Mild C5-C6 disc space narrowing. No acute compression fracture, subluxation, or jumped facet. Normal-appearing craniocervical junction. Visualized noncontrasted soft tissues unremarkable. Lung apices demonstrates biapical fibrosis/scarring and calcified granulomas. Impression: 1. Negative acute fracture/subluxation. Lordotic straightening, positional versus paraspinal spasm. 2. Osteopenia and multilevel degenerative changes. 3. 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 Comment: Preliminary interpretation was made by [facility]. No discrepancy. CT DI 74.39
== END 2016-10-26 00:29 | disposition home or self-care (01) ==
LOC: ED 20:39
DX: M54.2 Cervicalgia (principal); M19.90 Unspecified osteoarthritis, unspecified site; Z79.01 Long term (current) use of anticoagulants; M43.6 Torticollis; E78.00 Pure hypercholesterolemia, unspecified; I10 Essential (primary) hypertension; E03.9 Hypothyroidism, unspecified
CPT/HCPCS: 36000; 36415; 70450; 72125; 80053; 85025; 85610; 85652; 85730; 93005; 96374; 99284; 99285; J2270; L0120; A9270-GY

== ENCOUNTER 2016-12-14 10:13 | Emergency (ER) | payer MEDICARE ==
--- NOTE | 2016-12-14 10:34 | ERPHSYRPT ---
- History of Present Illness Time Seen by Provider: 12/14/16 10:29 Historian: patient Exam Limitations: no limitations Physician History: The patient is an 81-year-old female with her daughter complaining of left- sided chest pain for 3 days. It was worse last night and this morning. She had some sweating and shortness of breath. She denies nausea. She took Tylenol without relief this morning. This is the same chest pain that she has frequently over the last several years. She has had 4 cardiac catheterizations that were negative. Her past medical history is significant for noncardiac chest pain, hypertension, atrial fibrillation, and hypothyroidism. Timing/Duration: day(s) (3) Activities at Onset: none Quality: sharpness Location: substernal Chest Pain Radiation: neck Severity of Pain-Max: moderate Severity of Pain-Current: moderate Modifying Factors: Improves With: nothing Associated Symptoms: shortness of breath, diaphoresis, No nausea Prior Chest Pain/Cardiac Workup: non-cardiac, cardiac cath Nitro Today/Relief: no nitro taken today Aspirin Treatment Today: no aspirin today Allergies/Adverse Reactions: nortriptyline Allergy (Verified 12/14/16 10:33) Penicillins Allergy (Verified 12/14/16 10:33) Sulfa (Sulfonamide Antibiotics) Allergy (Verified 12/14/16 10:33) Home Medications: Levothyroxine Sodium 100 Mcg [Synthroid 100 Mcg] 112 mcg PO DAILY 10/03/12 [History] Metoprolol Succinate 25 mg Xl* [Toprol-Xl 25MG Tablets] 25 mg PO BID [History] Amlodipine Besylate [Norvasc] 2.5 mg PO DAILY 07/02/15 [History] Apixaban [Eliquis] 5 mg PO BID 12/14/16 [History] Hx Tetanus, Diphtheria Vaccination/Date Given: No Hx Influenza Vaccination/Date Given: Yes Hx Pneumococcal Vaccination/Date Given: Yes - Review of Systems Constitutional: No Fever, No Chills Eyes: No Symptoms Ears, Nose, & Throat: No Symptoms Respiratory: No Cough, No Dyspnea Cardiac: Chest Pain Abdominal/Gastrointestinal: No Abdominal Pain, No Nausea, No Vomiting, No Diarrhea Genitourinary Symptoms: No Dysuria Musculoskeletal: No Back Pain, No Neck Pain Skin: No Rash Neurological: No Symptoms Psychological: No Symptoms Endocrine: No Symptoms Hematologic/Lymphatic: No Symptoms Immunological/Allergic: No Symptoms All Other Systems: Reviewed and Negative - Past Medical History Pertinent Past Medical History: Yes Neurological History: No Pertinent History Cardiac History: Arrhythmia Respiratory History: No Pertinent History Endocrine Medical History: Hypothyroidism Musculoskeletal History: Arthritis GI Medical History: Gallbladder Disease Other Medical History: Mitral valve prolapse - Past Surgical History Past Surgical History: Yes Cardiac: Cardiac Catheterization Gastrointestinal: Appendectomy Musculoskeletal: Orthopedic Surgery Female Surgical History: Hysterectomy, Other Other Surgical History: tonsillectomy left had surgery right knee injected breast reduction 25 yrs ago - Social History Smoking Status: Never smoker Exposure to second hand smoke: No Drug Use: none Patient Lives Alone: Yes Significant Family History: no pertinent family hx - Nursing Vital Signs Nursing Vital Signs: Initial Vital Signs Temperature 98.0 F 12/14/16 10:15 Pulse Rate 75 12/14/16 10:15 Respiratory Rate 18 12/14/16 10:15 Blood Pressure 152/81 12/14/16 10:15 O2 Sat by Pulse Oximetry 94 L 12/14/16 10:15 Pain Scale Pain Intensity 6 - Physical Exam General Appearance: no apparent distress, alert Eye Exam: PERRL/EOMI, eyes nml inspection Ears, Nose, Throat Exam: normal ENT inspection, moist mucous membranes Neck Exam: normal inspection, non-tender, supple, full range of motion Respiratory Exam: normal breath sounds, chest tenderness (Point tenderness to area under left breast that reproduces pt's chest pain.), lungs clear, No respiratory distress Cardiovascular Exam: regular rate/rhythm, murmur Gastrointestinal/Abdomen Exam: soft, No tenderness, No mass Pelvic Exam: not done Rectal Exam: not done Back Exam: normal inspection, No CVA tenderness, No vertebral tenderness Extremity Exam: normal inspection, normal range of motion Neurologic Exam: alert, oriented x 3, cooperative, normal mood/affect, sensation nml, No motor deficits Skin Exam: normal color, warm, dry SpO2 Interpretation: normal - Course EKG Interpreted by Me: RATE, NORMAL AXIS, NORMAL INTERVALS, NORMAL QRS, NORMAL ST-T, Other (no change compared to EKG 10/25/16) - Radiology Exams Chest X-ray Interpretation: Teleradiologist Report, Negative (stable nonacute chest per Dr Ferrara) Ordered Tests: Active Orders 24 hr Category Date Time Status Cripple Worker STAT Care 12/14/16 10:37 Active EKG-ER Only STAT Care 12/14/16 10:35 Active IV Insertion STAT Care 12/14/16 10:36 Active Pulse Oximetry (ED) STAT Care 12/14/16 10:37 Active CHEST 2 VIEWS (PA AND LAT) Stat Exams 12/14/16 10:36 Completed CBC W DIFF Stat Lab 12/14/16 10:30 Completed CMP Stat Lab 12/14/16 10:30 Completed NT PRO BNP Stat Lab 12/14/16 10:30 Completed TROPONIN Q3H Lab 12/14/16 10:30 Completed TROPONIN Q3H Lab 12/14/16 13:45 Ordered TROPONIN Q3H Lab 12/14/16 16:45 Ordered TROPONIN Q3H Lab 12/14/16 19:45 Ordered TROPONIN Q3H Lab 12/14/16 22:45 Ordered Medication Summary Discontinued Medications Generic Name Dose Route Start Last Admin Trade Name Freq PRN Reason Stop Dose Admin Aspirin 324 mg 12/14/16 10:36 12/14/16 10:57 Baby Aspirin 81 Mg Chew PO 12/14/16 10:37 324 mg STAT ONE Administration Lab/Rad Data: Laboratory Result Diagrams 12/14/16 10:30 12/14/16 10:30 Laboratory Results 12/14/16 12/14/16 12/14/16 Range/Units 10:30 10:30 10:30 WBC 7.6 (4.0-10.5) K/mm3 RBC 4.28 (4.1-5.4) M/mm3 Hgb 13.4 (12.0-16.0) gm/dl Hct 39.8 (35-47) % MCV 93.0 (78-100) fl MCH 31.3 (26-32) pg MCHC 33.7 (32-36) g/dl RDW 13.5 (11.5-14.0) % Plt Count 234 (150-450) K/mm3 MPV 10.5 H (6-9.5) fl Gran % 63.6 (36.0-66.0) % Lymphocytes % 21.2 L (24.0-44.0) % Monocytes % 13.0 H (0.0-12.0) % Eosinophils % 1.3 (0.00-5.0) % Basophils % 0.9 (0.0-0.4) % Basophils # 0.07 (0-0.4) Sodium 140 (136-145) mEq/L Potassium 4.2 (3.5-5.1) mEq/L Chloride 106 (98-107) mEq/L Carbon Dioxide 22.6 (21-32) mEq/L Anion Gap 15.5 H (5-15) MEQ/L BUN 13 (9-20) mg/dL Creatinine 0.73 (0.55-1.30) mg/dl Estimated GFR > 60 ML/MIN Glucose 101 (70-110) MG/DL Calcium 9.1 (8.5-10.1) mg/dL Total Bilirubin 0.40 (0.2-1.0) mg/dL AST 28 (15-37) U/L ALT 23 (12-78) U/L Alkaline Phosphatase 72 (46-116) U/L Troponin I < 0.017 (0.000-0.056) ng/ml NT-Pro-B Natriuret Pep 238 (0-450) pg/ml Serum Total Protein 6.9 (6.4-8.2) gm/dL Albumin 3.4 (3.4-5.0) g/dL - Progress Progress: improved Air Movement: good Blood Culture(s) Obtained: No Antibiotics given: No Counseled pt/family regarding: lab results, diagnosis, need for follow-up, rad results - Departure Time of Disposition: 11:43 Departure Disposition: Home Clinical Impression: Musculoskeletal chest pain Condition: Stable Critical Care Time: No Referrals: KIERSTEN HELMS [Primary Care Provider] - Additional Instructions: You have musculoskeletal chest pain. There was 1 area on your left chest that was very tender when I pushed on it. You were given aspirin 324 mg in the ER. Continued to take Tylenol 1000 mg every 6-8 hours as needed. Apply ice to the area as needed. Continue with your physical therapy. Follow-up as needed.
[2016-12-14] MEDS ORDERED: BABY ASPIRIN 81 MG CHEW PO ONE (10:36)
[2016-12-14 10:46] LABS: BASOPHIL % 0.9 % (0.0-0.4); Eosinophil % 1.3 % (0.00-5.0); Granulocytes % 63.6 % (36.0-66.0); Lymphocytes % 21.2 % (24.0-44.0); Mean Corpuscular Hemoglobin 31.3 pg (26-32); Mean Platelet Volume 10.5 fl (6-9.5); Platelet Count 234 K/mm3 (150-450); Red Blood Count 4.28 M/mm3 (4.1-5.4); Red Cell Distribution Width 13.5 % (11.5-14.0); White Blood Count 7.6 K/mm3 (4.0-10.5)
[2016-12-14 11:11] LABS: ALBUMIN 3.4 g/dL (3.4-5.0); ALKALINE PHOSPHATASE 72 U/L (46-116); ANION GAP 15.5 MEQ/L (5-15); BLOOD UREA NITROGEN 13 mg/dL (9-20); CHLORIDE 106 mEq/L (98-107); Carbon Dioxide 22.6 mEq/L (21-32); Glucose 101 MG/DL (70-110); Potassium 4.2 mEq/L (3.5-5.1); SGOT/AST 28 U/L (15-37); SGPT/ALT 23 U/L (12-78); SODIUM 140 mEq/L (136-145); Total Protein 6.9 gm/dL (6.4-8.2)
[2016-12-14 11:18] VITALS: O2SAT 96
--- NOTE | 2016-12-14 11:27 | XRAY ---
Indication: Chest pain. Comparison: September 29, 2016. PA/lateral chest again hyperinflated with a few calcified granulomas and biapical pleural-parenchymal scarring. No infiltrate, consolidation, or large effusion. Heart is not enlarged. Bony thorax intact again with osteopenia and degenerative changes. Impression: Stable nonacute chest with chronic features.
[2016-12-14 12:09] VITALS: BP 141/78; PULSE 74
[2016-12-14] MEDS ORDERED: BABY ASPIRIN 81 MG CHEW ONE (14:26)
== END 2016-12-14 12:09 | disposition home or self-care (01) ==
LOC: ED 10:13
DX: R07.89 Other chest pain (principal); I10 Essential (primary) hypertension; I48.91 Unspecified atrial fibrillation; E03.9 Hypothyroidism, unspecified; R06.02 Shortness of breath; R61 Generalized hyperhidrosis; Z79.899 Other long term (current) drug therapy; Z79.01 Long term (current) use of anticoagulants
CPT/HCPCS: 36000; 36415; 71020; 80053; 83880; 84484; 85025; 93005; 93041; 99284; A9270-GY

== ENCOUNTER 2017-05-25 13:16 | Emergency (ER) | payer MEDICARE ==
--- NOTE | 2017-05-25 14:03 | ERPHSYRPT ---
- History of Present Illness Time Seen by Provider: 05/25/17 13:44 Source: patient Patient Subjective Stated Complaint: to er c/o high blood pressure and episode of blurred vision at approx 1110 this morning. pt states blurred vision present for approx 20 min and has resided at this time. pt states also has "odd feeling to left leg" Triage Nursing Assessment: To er c/o high bp, blurred vision and vision loss. pt reports vision disturbance present for approx 20 min at 1110 today. PT has no vision loss at this time. PT denies any slurred speech issues at time of incident. pt p/w/d resp easy [id number] Physician History: CC: high blood pressure Hx: 82 y/o patient of Dr Armas/Jenelle with hx of afib, HTN, TIA. She takes eliquis. Last night she noted some tingling in left leg which is worse into the left arm today. At 11:10AM she had a 20 minute episode of visual disturbance in which she had blurry vision like looking thru glass. It is now resolved. 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 She has no headache. No injury. No focal weakness. She took her BP and it was high so she came to ER. Timing/Duration: today, yesterday Allergies/Adverse Reactions: nortriptyline Allergy (Verified 12/14/16 10:33) Penicillins Allergy (Verified 12/14/16 10:33) Sulfa (Sulfonamide Antibiotics) Allergy (Verified 12/14/16 10:33) Home Medications: Levothyroxine Sodium 100 Mcg [Synthroid 100 Mcg] 112 mcg PO DAILY 10/03/12 [History] Metoprolol Succinate 25 mg Xl* [Toprol-Xl 25MG Tablets] 25 mg PO BID [History] Amlodipine Besylate [Norvasc] 2.5 mg PO DAILY 07/02/15 [History] Apixaban [Eliquis] 5 mg PO BID 12/14/16 [History] Vitamin B Complex 1 each PO DAILY 05/25/17 [History] Hx Tetanus, Diphtheria Vaccination/Date Given: No Hx Influenza Vaccination/Date Given: Yes Hx Pneumococcal Vaccination/Date Given: Yes - Review of Systems Constitutional: No Fever, No Chills Eyes: Vision Changes (resolved now) Ears, Nose, & Throat: No Symptoms Respiratory: No Symptoms Cardiac: No Chest Pain Abdominal/Gastrointestinal: No Abdominal Pain, No Nausea, No Vomiting Neurological: Parasthesia (left arm and leg), No Focal Weakness All Other Systems: Reviewed and Negative - Past Medical History Pertinent Past Medical History: Yes Neurological History: No Pertinent History Cardiac History: Arrhythmia Respiratory History: No Pertinent History Endocrine Medical History: Hypothyroidism Musculoskeletal History: Arthritis GI Medical History: Gallbladder Disease Other Medical History: MVP. Hodgkin Lymphoma - Past Surgical History Past Surgical History: Yes Cardiac: Cardiac Catheterization Gastrointestinal: Appendectomy Musculoskeletal: Orthopedic Surgery Female Surgical History: Hysterectomy, Other Other Surgical History: tonsillectomy left had surgery right knee injected breast reduction 25 yrs ago - Social History Smoking Status: Never smoker Exposure to second hand smoke: No Drug Use: none Patient Lives Alone: Yes Significant Family History: no pertinent family hx - Nursing Vital Signs Nursing Vital Signs: Initial Vital Signs Temperature 98.4 F 05/25/17 13:30 Pulse Rate 77 05/25/17 13:30 Respiratory Rate 18 05/25/17 13:30 Blood Pressure 175/90 05/25/17 13:30 O2 Sat by Pulse Oximetry 98 05/25/17 13:30 Pain Scale Pain Intensity 4 - [place] Coma Scale Best Eye Response (Kd): (4) open spontaneously Best Verbal Response ([place]): (5) oriented Best Motor Response (Kd): (6) obeys commands [place] Total: 15 - Physical Exam General Appearance: alert, other (pleasant lady) Eye Exam: bilateral eye: PERRL Ears, Nose, Throat Exam: normal ENT inspection, moist mucous membranes Neck Exam: normal inspection, non-tender, supple Respiratory: normal breath sounds Cardiovascular: regular rate/rhythm Gastrointestinal: soft, No tenderness, No distention Extremity Exam: normal inspection, normal range of motion Mental Status: alert, oriented x 3, cooperative care team assistant Exam: normal hearing, normal speech, PERRL Motor/Sensory: no motor deficit, no sensory deficit, no pronator drift Skin Exam: warm, dry, No rash SpO2 Interpretation: normal SpO2: 98 Oxygen Delivery: Room Air Comments: She complains of subjective numbness left arm and leg - Course Nursing assessment & vital signs reviewed: Yes EKG Interpreted by Me: RATE (72), Sinus Rhythm, NORMAL AXIS, NORMAL INTERVALS ( [id number]), 1st degree AV Block, NORMAL QRS, NORMAL ST-T - Radiology Exams cxr X-ray Interpretation: Teleradiologist Report, Negative - CT Exams head CT Interpretation: Tele-radiologist Report (stable nonacute senile brain) Ordered Tests: Active Orders 24 hr Category Date Time Status Data Security Consultant STAT Care 05/25/17 13:58 Active EKG-ER Only STAT Care 05/25/17 13:56 Active IV Insertion STAT Care 05/25/17 13:56 Active NPO (ED) STAT Care 05/25/17 13:56 Active Pulse Oximetry (ED) STAT Care 05/25/17 13:56 Active Re-Check Vital Signs STAT Care 05/25/17 15:07 Active CHEST 1 VIEW (PORTABLE) Stat Exams 05/25/17 13:57 Completed HEAD WITHOUT CONTRAST [CT] Stat Exams 05/25/17 13:57 Completed CBC W DIFF Stat Lab 05/25/17 13:56 Completed CMP Stat Lab 05/25/17 13:56 Completed PROTIME WITH INR Stat Lab 05/25/17 13:56 Ordered PTT Stat Lab 05/25/17 13:56 Ordered Lab/Rad Data: Laboratory Result Diagrams 05/25/17 13:56 05/25/17 13:56 Laboratory Results 05/25/17 05/25/17 Range/Units 13:56 13:56 WBC 6.8 (4.0-10.5) K/mm3 RBC 4.37 (4.1-5.4) M/mm3 Hgb 13.5 (12.0-16.0) gm/dl Hct 40.8 (35-47) % MCV 93.4 (78-100) fl MCH 30.9 (26-32) pg MCHC 33.1 (32-36) g/dl RDW 13.3 (11.5-14.0) % Plt Count 211 (150-450) K/mm3 MPV 10.3 H (6-9.5) fl Gran % 60.8 (36.0-66.0) % Lymphocytes % 24.0 (24.0-44.0) % Monocytes % 13.0 H (0.0-12.0) % Eosinophils % 1.3 (0.00-5.0) % Basophils % 0.9 (0.0-0.4) % Basophils # 0.06 (0-0.4) Sodium 141 (136-145) mEq/L Potassium 4.5 (3.5-5.1) mEq/L Chloride 107 (98-107) mEq/L Carbon Dioxide 28.8 (21-32) mEq/L Anion Gap 9.8 (5-15) MEQ/L BUN 16 (9-20) mg/dL Creatinine 0.77 (0.55-1.30) mg/dl Estimated GFR > 60 ML/MIN Glucose 99 (70-110) MG/DL Calcium 9.3 (8.5-10.1) mg/dL Total Bilirubin 0.50 (0.2-1.0) mg/dL AST 20 (15-37) U/L ALT 23 (12-78) U/L Alkaline Phosphatase 76 (46-116) U/L Serum Total Protein 6.9 (6.4-8.2) gm/dL Albumin 3.6 (3.4-5.0) g/dL - Progress Progress Note: 05/25/17 15:29 Pt visiting with daughter. She ambulated to well. No focal neuro symptoms. BP much better. She is comfortable. She is stable to go home. She has seen cardiology, neurology, ophthalmology in the past regarding the visual spells. Appt with Dr Armas tomorrow at 11AM. Counseled pt/family regarding: lab results, diagnosis, need for follow-up, rad results - Departure Time of Disposition: 15:31 Departure Disposition: Home Clinical Impression: Visual disturbance, Hypertension, Anticoagulant long-term use Condition: Stable Critical Care Time: No Referrals: KIERSTEN ARMAS [Primary Care Provider] - Instructions: High Blood Pressure (DC) Additional Instructions: See DR Armas tomorrow at 11AM. \\Stay with family tonite. Return for problems. Record BP twice a day.
[2017-05-25 14:13] LABS: BASOPHIL % 0.9 % (0.0-0.4); Basophil (Absolute #) 0.06 (0-0.4); Eosinophil % 1.3 % (0.00-5.0); Eosinophil (Absolute #) 0.09 (0-0.5); Granulocyte Absolute (ANC) 4.12 (1.4-6.9); Granulocytes % 60.8 % (36.0-66.0); Hematocrit 40.8 % (35-47); Hemoglobin 13.5 gm/dl (12.0-16.0); Lymphocyte (Absolute #) 1.63 (1.0-4.6); Mean Cell Volume 93.4 fl (78-100); Mean Corpuscular Hemoglobin 30.9 pg (26-32); Mean Corpuscular Hgb Concent. 33.1 g/dl (32-36); Mean Platelet Volume 10.3 fl (6-9.5); Monocyte (Absolute #) 0.88 (0.0-1.3); Platelet Count 211 K/mm3 (150-450); Red Blood Count 4.37 M/mm3 (4.1-5.4); Red Cell Distribution Width 13.3 % (11.5-14.0); White Blood Count 6.8 K/mm3 (4.0-10.5)
[2017-05-25 14:22] VITALS: O2SAT 98
--- NOTE | 2017-05-25 14:40 | XRAY ---
Indication: Left-sided numbness and visual distortion. Atrial fibrillation. Multiple contiguous axial images obtained through the head without contrast. Comparison: October 25, 2014. Stable age-appropriate global atrophy and mild periventricular degenerative micro-ischemia bilaterally. No acute intracranial hemorrhage, abnormal extra-axial fluid collection, or mass effect. Fourth ventricle is midline without hydrocephalus. Bony calvarium intact. Visualized paranasal sinuses and mastoid air cells are clear. Impression: Stable nonacute senile brain. CT DI 70.00
--- NOTE | 2017-05-25 14:42 | XRAY ---
Indication: Left sided numbness. Atrial fibrillation. Comparison: December 14, 2016. Portable chest again demonstrates tiny calcified granulomas and biapical pleural-parenchymal scarring. Remaining lungs clear. Heart and mediastinal structures within normal limits for AP portable technique. Bony thorax intact again with mild osteopenia and degenerative changes. Impression: Stable nonacute chest with chronic features.
[2017-05-25 15:00] LABS: ALBUMIN 3.6 g/dL (3.4-5.0); ALKALINE PHOSPHATASE 76 U/L (46-116); ANION GAP 9.8 MEQ/L (5-15); BLOOD UREA NITROGEN 16 mg/dL (9-20); CHLORIDE 107 mEq/L (98-107); Calcium 9.3 mg/dL (8.5-10.1); Carbon Dioxide 28.8 mEq/L (21-32); Creatinine 1 0.77 mg/dl (0.55-1.30); EST GLOMERULAR FILTRATION RATE > 60 ML/MIN; Glucose 99 MG/DL (70-110); Potassium 4.5 mEq/L (3.5-5.1); SGOT/AST 20 U/L (15-37); SGPT/ALT 23 U/L (12-78); SODIUM 141 mEq/L (136-145); Total Protein 6.9 gm/dL (6.4-8.2)
[2017-05-25 15:09] LABS: INR 1.12 (0.8-3.0)
[2017-05-25 15:11] LABS: PTT 31.9 SECONDS (25.3-37.0)
[2017-05-25 15:24] VITALS: BP 127/53; PULSE 75
== END 2017-05-25 15:47 | disposition home or self-care (01) ==
LOC: ED 13:16
DX: H53.9 Unspecified visual disturbance (principal); I10 Essential (primary) hypertension; Z79.01 Long term (current) use of anticoagulants; Z79.899 Other long term (current) drug therapy; E03.9 Hypothyroidism, unspecified; M19.90 Unspecified osteoarthritis, unspecified site; I71.2 Thoracic aortic aneurysm, without rupture; C81.90 Hodgkin lymphoma, unspecified, unspecified site
CPT/HCPCS: 36000; 36415; 70450; 71045; 80053; 85025; 85610; 85730; 93005; 93041; 99284

== ENCOUNTER 2017-06-17 07:17 | Day surgery (SDC) | payer MEDICARE ==
--- NOTE | 2017-06-14 08:22 | HP ---
DATE OF SURGERY: 06/17/2017 ANTICIPATED PROCEDURE: Cholecystectomy. HISTORY OF PRESENT ILLNESS: A patient with upper abdominal discomfort. Ultrasound negative. HIDA scan at 26%. Options discussed with her and wished to proceed. PAST MEDICAL HISTORY: ALLERGIES: SULFA, PENICILLIN. MEDICATIONS: Coumadin, levothyroxine, metoprolol, aspirin. PAST SURGICAL HISTORY: Oophorectomy, tonsillectomy, cancer surgery, heart cath, hysterectomy. SOCIAL HISTORY: Negative. FAMILY HISTORY: Negative. REVIEW OF SYSTEMS: Atrial fibrillation, mitral valve prolapse, arthritis. PHYSICAL EXAMINATION: VITAL SIGNS: Normal. CHEST: Clear. COR: Regular. ABDOMEN: No palpable organomegaly or mass. IMPRESSION: Gallbladder dyskinesia. PLAN: Laparoscopic cholecystectomy.
[~2017-06-17 07:17] MED LIST: Lactated Ringers 1,000 ML IV ONE; Sensorcaine 0.25% 10 ML ONE
[2017-06-17] MEDS ORDERED: SUBLIMAZE 250 MCG/5 ML IJ ONE (07:18)
[2017-06-17] MEDS ORDERED: Ephedrine Sulfate 50 MG/ML IJ ONE (07:18)
[2017-06-17] MEDS ORDERED: BRIDION 200MG/2ML IV ONE (07:18)
[2017-06-17] MEDS ORDERED: PHENYLEPHRINE HCL IJ ONE (07:18)
[2017-06-17] MEDS ORDERED: Zemuron 100 MG/10 ML IJ ONE (07:18)
[2017-06-17] MEDS ORDERED: DIPRIVAN 200 MG/20 ML IV ONE (07:18)
[2017-06-17] MEDS ORDERED: Levofloxacin 500MG/100ML D5W 500 MG/100 ML BAG IV ONE (07:34)
[2017-06-17] MEDS ORDERED: Lactated Ringers 1,000 ML IV ONE (07:34)
[2017-06-17] MEDS ORDERED: Levofloxacin 500MG/100ML D5W 500 MG/100 ML BAG IV SCH (07:45)
[2017-06-17] MEDS ORDERED: Lactated Ringers 1,000 ML IV SCH (08:00)
[2017-06-17] MEDS ORDERED: CLINDAMYCIN-D5W 900 MG/50 ML*** 900 MG/50 ML BAG IV SCH (08:00)
[2017-06-17] MEDS ORDERED: SUBLIMAZE 100 MCG/2 ML ONE (11:05)
[2017-06-17 12:49] VITALS: PULSE 69; O2SAT 94
[2017-06-17 12:51] VITALS: BP 122/96
--- NOTE | 2017-06-17 14:55 | OP ---
SURGERY DATE/TIME: 06/17/2017 1008 PREOPERATIVE DIAGNOSIS: Gallbladder dyskinesia. POSTOPERATIVE DIAGNOSIS: Gallbladder dyskinesia. PROCEDURE: Laparoscopic cholecystectomy. SURGEON: Wing Cornejo M.D. ANESTHESIA: General. COMPLICATIONS: None. CONDITION: Stable. ESTIMATED BLOOD LOSS: None. DRAINS: None. INDICATION: A patient with gallbladder dyskinesia 20% quite symptomatic. DESCRIPTION OF PROCEDURE: Taken to surgery. General anesthetic, routine prep and drape. Verses needle inserted. There was a small umbilical hernia. Insufflating pressure 15. Epigastric port was cannulated first with a 5 port. There were no adhesions against the anterior abdominal wall. Small bowel was in the midline and satisfactory. Two pieces of colon were seen and were normal. No adhesions against the anterior abdominal wall. The liver was normal. The gallbladder was distended. Cystic duct defined. Cystic artery defined. Both structures triply clipped and transected. Clips noted across and well approximated. Gallbladder rolled out of gallbladder fossa. Gallbladder delivered through umbilical port with small amount of widening. It was closed with a hole closure device. Skin closed with 4-0 Vicryl and Steri-Strips. The patient tolerated the procedure satisfactorily.
== END 2017-06-17 12:55 | disposition home or self-care (01) ==
LOC: SDC 07:17
PROVIDERS: ATTEND Surgery
PROC: 0FT44ZZ Resection of Gallbladder, Percutaneous Endoscopic Approach (ICD-10-PCS; principal; 2017-06-17)
DX: K82.8 Other specified diseases of gallbladder (principal); I48.91 Unspecified atrial fibrillation; Z79.01 Long term (current) use of anticoagulants; I34.1 Nonrheumatic mitral (valve) prolapse; M19.90 Unspecified osteoarthritis, unspecified site; Z79.899 Other long term (current) drug therapy
CPT/HCPCS: 00840; 88304; 99100; J1956; J2370; J2704; J3010

== ENCOUNTER 2018-11-21 12:02 | Observation (INO) | payer MEDICARE ==
[2018-11-21] MEDS ORDERED: Carafate 1 GM PO ONE ×2 (12:12→12:21)
[2018-11-21] MEDS ORDERED: BABY ASPIRIN 81 MG CHEW PO ONE (12:12)
[2018-11-21] MEDS ORDERED: NITRO-BID 2% UD PACKETS TOP ONE (12:12)
[2018-11-21] MEDS ORDERED: Sodium Chloride 0.9% 1000 ML 1,000 ML IV SCH (12:15)
--- NOTE | 2018-11-21 12:20 | ERPHSYRPT ---
- History of Present Illness Time Seen by Provider: 11/21/18 12:05 Historian: patient, old records, other (friend) Exam Limitations: no limitations Physician History: patient not feeling well since last Wednesday; developed CP/heaviness this am- ; no N&V or diaphoresis; no smoking; no prior hx; hx of a Fib treatd; no SOB ; radiates to left arm and neck- heaviness; no NTG Timing/Duration: today, hour(s) (3) Activities at Onset: rest Quality: aching, fullness Location: substernal Chest Pain Radiation: neck (left), arm (left) Severity of Pain-Max: moderate Severity of Pain-Current: mild Modifying Factors: Improves With: other (some relief with belching) Associated Symptoms: heartburn Prior Chest Pain/Cardiac Workup: non-cardiac Nitro Today/Relief: no nitro taken today, provided by ED Aspirin Treatment Today: provided by ED Allergies/Adverse Reactions: Penicillins Allergy (Verified 06/17/17 07:28) Sulfa (Sulfonamide Antibiotics) Allergy (Verified 06/17/17 07:28) Home Medications: Levothyroxine Sodium 100 Mcg [Synthroid 100 Mcg] 112 mcg PO DAILY 10/03/12 [History] Metoprolol Succinate 25 mg Xl* [Toprol-Xl 25MG Tablets] 25 mg PO BID [History] Amlodipine Besylate [Norvasc] 2.5 mg PO DAILY 07/02/15 [History] Apixaban [Eliquis] 5 mg PO BID 12/14/16 [History] Vitamin B Complex 1 each PO DAILY 05/25/17 [History] Hx Tetanus, Diphtheria Vaccination/Date Given: No Hx Influenza Vaccination/Date Given: Yes Hx Pneumococcal Vaccination/Date Given: Yes - Review of Systems Constitutional: No Symptoms Eyes: No Symptoms Ears, Nose, & Throat: No Symptoms Respiratory: No Cough, No Dyspnea, No Wheezing Cardiac: Chest Pain, No Edema, No Syncope, No Orthopnea Abdominal/Gastrointestinal: No Abdominal Pain, No Nausea, No Vomiting Genitourinary Symptoms: No Symptoms Musculoskeletal: No Symptoms Skin: No Symptoms Neurological: No Symptoms Psychological: No Symptoms Endocrine: No Symptoms Hematologic/Lymphatic: Easy Bruising Immunological/Allergic: No Symptoms - Past Medical History Pertinent Past Medical History: Yes Neurological History: Migraines ENT History: No Pertinent History Cardiac History: Arrhythmia, High Cholesterol, Hypertension Respiratory History: No Pertinent History Endocrine Medical History: Hypothyroidism Musculoskeletal History: Arthritis GI Medical History: Gallbladder Disease History: No Pertinent History Psycho-Social History: No Pertinent History Female Reproductive Disorders: No Pertinent History Other Medical History: MVP. Hodgkin Lymphoma. frequent ocular migraine associated aphasia - Past Surgical History Past Surgical History: Yes Neuro Surgical History: No Pertinent History Cardiac: Cardiac Catheterization Respiratory: No Pertinent History Gastrointestinal: Appendectomy Genitourinary: No Pertinent History Musculoskeletal: Other Female Surgical History: Hysterectomy, Other Other Surgical History: tonsillectomy,left hand surgery, right knee injected , breast reduction 25 yrs ago - Social History Smoking Status: Never smoker Exposure to second hand smoke: No Alcohol Use: Socially Drug Use: none Patient Lives Alone: Yes Significant Family History: no pertinent family hx - Female History Hx Now: No - Nursing Vital Signs Nursing Vital Signs: Initial Vital Signs Temperature 98.1 F 11/21/18 12:09 Pulse Rate 76 11/21/18 12:09 Respiratory Rate 18 11/21/18 12:09 Blood Pressure 170/86 11/21/18 12:09 O2 Sat by Pulse Oximetry 96 11/21/18 12:09 Pain Scale Pain Intensity 0 - Physical Exam General Appearance: mild distress, alert Eye Exam: PERRL/EOMI, eyes nml inspection, No photophobia Ears, Nose, Throat Exam: normal ENT inspection, TMs normal, pharynx normal, moist mucous membranes Neck Exam: normal inspection, non-tender, supple, full range of motion, No meningismus, No carotid bruit, No JVD Respiratory Exam: normal breath sounds, lungs clear, airway intact, No chest tenderness, No respiratory distress, No crackles/rales, No rhonchi, No wheezing , No pleural rub Cardiovascular Exam: regular rate/rhythm, normal heart sounds, normal peripheral pulses, murmur (3/6 early SM blowing), capillary refill <2 sec, No friction rub, No edema Gastrointestinal/Abdomen Exam: soft, normal bowel sounds, No tenderness, No guarding, No pulsatile mass, No organomegaly Pelvic Exam: deferred Rectal Exam: deferred Back Exam: normal inspection, normal range of motion, No CVA tenderness, No vertebral tenderness, No rash Extremity Exam: normal inspection, normal range of motion, No lex's sign, No pedal edema Neurologic Exam: alert, oriented x 3, cooperative, web analyst II-XII nml as tested, normal mood/affect, nml cerebellar function, nml station & gait, sensation nml Skin Exam: normal color, warm, No rash, No petechiae, No cyanosis Lymphatic Exam: No adenopathy SpO2 Interpretation: normal SpO2: 96 O2 Delivery: Room Air - Course Nursing assessment & vital signs reviewed: Yes EKG Interpreted by Me: RATE (75), Sinus Rhythm, NORMAL AXIS, 1st degree AV Block , NORMAL QRS, NORMAL ST-T, Other (unchanged compared to old ekg form 05-25-17 except now prolonged NE) Rhythm Strip: Rate (75), Normal Sinus Rhythm - Radiology Exams Chest X-ray Interpretation: Reviewed by me, Teleradiologist Report, Negative, Other ( chronic changes only) Ordered Tests: Active Orders 24 hr Category Date Time Status Bedrest with BRP/BSC ROUTINE Activity 11/21/18 13:42 Ordered Call Admit Doctor for Orders ROUTINE Care 11/21/18 13:42 Ordered Casing Crew STAT Care 11/21/18 12:13 Active Code Status Order ROUTINE Care 11/21/18 13:42 Ordered EKG-ER Only STAT Care 11/21/18 12:12 Active IV Care Q6H Care 11/21/18 13:42 Ordered IV Insertion STAT Care 11/21/18 12:12 Active Implement Chest Pain Pathway ROUTINE Care 11/21/18 13:[address] in Observation ROUTINE Care 11/21/18 13:43 Ordered Pulse Oximetry (ED) STAT Care 11/21/18 12:12 Active Re-Check Vital Signs STAT Care 11/21/18 12:12 Active Italo Mayes ROUTINE Care 11/21/18 13:42 Ordered Weight,Daily 0600 Care 11/21/18 13:42 Ordered Cardiac Diet Diet 11/21/18 Dinner Ordered CHEST 1 VIEW (PORTABLE) Stat Exams 11/21/18 12:12 Completed CBC W DIFF Stat Lab 11/21/18 12:32 Completed CMP Stat Lab 11/21/18 12:32 Completed LIPID PROFILE AM.LAB Lab 11/22/18 04:00 Ordered NT PRO BNP Stat Lab 11/21/18 12:32 Completed PROTIME WITH INR Stat Lab 11/21/18 12:32 Completed TROPONIN Q3H Lab 11/21/18 12:32 Completed TROPONIN Q3H Lab 11/21/18 15:15 Ordered TROPONIN Q3H Lab 11/21/18 18:15 Ordered TROPONIN Q3H Lab 11/21/18 21:15 Ordered TROPONIN Q3H Lab 11/22/18 00:15 Ordered EKG Q8HX2,QAMX3,PRN RT 11/21/18 13:42 Ordered Pulse Oximetry Q4H RT 11/21/18 13:42 Ordered Transfer Order Routine Transfer 11/21/18 Ordered Medication Summary Generic Name Dose Route Start Last Admin Trade Name Freq PRN Reason Stop Dose Admin Sodium Chloride 1,000 mls @ 50 mls/hr 11/21/18 12:15 11/21/18 12:23 Sodium Chloride 0.9% 1000 Ml IV 12/21/18 12:14 50 mls/hr .Q20H WILLIE Administration Discontinued Medications Generic Name Dose Route Start Last Admin Trade Name Freq PRN Reason Stop Dose Admin Aspirin 324 mg 11/21/18 12:12 11/21/18 12:24 Baby Aspirin 81 Mg Chew PO 11/21/18 12:13 324 mg STAT ONE Administration Aspirin Confirm 11/21/18 12:21 Baby Aspirin 81 Mg Chew Administered 11/21/18 12:22 Dose 324 mg .ROUTE .STK-MED ONE Nitroglycerin 1 gm 11/21/18 12:12 11/21/18 12:24 Nitro-Bid 2% Ud Packets TOP 11/21/18 12:13 1 gm STAT ONE Administration Nitroglycerin Confirm 11/21/18 12:21 Nitro-Bid 2% Ud Packets Administered 11/21/18 12:22 Dose 1 gm .ROUTE .STK-MED ONE Sucralfate 1 g 11/21/18 12:12 11/21/18 12:23 Carafate 1 Gm PO 11/21/18 12:13 1 g STAT ONE Administration Sucralfate Confirm 11/21/18 12:21 Carafate 1 Gm Administered 11/21/18 12:22 Dose 1 g PO .STK-MED ONE Lab/Rad Data: Laboratory Result Diagrams 11/21/18 12:32 11/21/18 12:32 Laboratory Results 11/21/18 11/21/18 11/21/18 Range/Units 12:32 12:32 12:32 WBC (4.0-10.5) K/mm3 RBC (4.1-5.4) M/mm3 Hgb (12.0-16.0) gm/dl Hct (35-47) % MCV (78-100) fl MCH (26-32) pg MCHC (32-36) g/dl RDW (11.5-14.0) % Plt Count (150-450) K/mm3 MPV (6-9.5) fl Gran % (36.0-66.0) % Eos # (Auto) (0-0.5) Absolute Lymphs (auto) (1.0-4.6) Absolute Monos (auto) (0.0-1.3) Lymphocytes % (24.0-44.0) % Monocytes % (0.0-12.0) % Eosinophils % (0.00-5.0) % Basophils % (0.0-0.4) % Absolute Granulocytes (1.4-6.9) Basophils # (0-0.4) PT 13.5 H (9.95-12.35) SECONDS INR 1.19 (0.8-3.0) Sodium 138 (137-145) mmol/L Potassium 4.1 (3.5-5.1) mmol/L Chloride 105 (98-107) mmol/L Carbon Dioxide 25 (22-30) mmol/L Anion Gap 12.3 (5-15) MEQ/L BUN 18 H (7-17) mg/dL Creatinine 0.68 (0.52-1.04) mg/dL Estimated GFR > 60.0 ML/MIN Glucose 94 (74-106) mg/dL Calcium 9.6 (8.4-10.2) mg/dL Total Bilirubin 0.70 (0.2-1.3) mg/dL AST 21 (14-36) U/L ALT 18 (0-35) U/L Alkaline Phosphatase 76 (38-126) U/L Troponin I < 0.012 (0.000-0.034) ng/mL NT-Pro-B Natriuret Pep 295 (0-1800) pg/mL Serum Total Protein 6.5 (6.3-8.2) g/dL Albumin 3.9 (3.5-5.0) g/dL 11/21/18 Range/Units 12:32 WBC 7.6 (4.0-10.5) K/mm3 RBC 4.37 (4.1-5.4) M/mm3 Hgb 14.2 (12.0-16.0) gm/dl Hct 41.2 (35-47) % MCV 94.3 (78-100) fl MCH 32.5 H (26-32) pg MCHC 34.5 (32-36) g/dl RDW 13.3 (11.5-14.0) % Plt Count 216 (150-450) K/mm3 MPV 10.7 H (6-9.5) fl Gran % 61.2 (36.0-66.0) % Eos # (Auto) 0.15 (0-0.5) Absolute Lymphs (auto) 1.73 (1.0-4.6) Absolute Monos (auto) 1.01 (0.0-1.3) Lymphocytes % 22.6 L (24.0-44.0) % Monocytes % 13.2 H (0.0-12.0) % Eosinophils % 2.0 (0.00-5.0) % Basophils % 1.0 (0.0-0.4) % Absolute Granulocytes 4.67 (1.4-6.9) Basophils # 0.08 (0-0.4) PT (9.95-12.35) SECONDS INR (0.8-3.0) Sodium (137-145) mmol/L Potassium (3.5-5.1) mmol/L Chloride (98-107) mmol/L Carbon Dioxide (22-30) mmol/L Anion Gap (5-15) MEQ/L BUN (7-17) mg/dL Creatinine (0.52-1.04) mg/dL Estimated GFR ML/MIN Glucose (74-106) mg/dL Calcium (8.4-10.2) mg/dL Total Bilirubin (0.2-1.3) mg/dL AST (14-36) U/L ALT (0-35) U/L Alkaline Phosphatase (38-126) U/L Troponin I (0.000-0.034) ng/mL NT-Pro-B Natriuret Pep (0-1800) pg/mL Serum Total Protein (6.3-8.2) g/dL Albumin (3.5-5.0) g/dL reviewed - Progress Progress: re-examined (after meds) Air Movement: good Progress Note: 11/21/18 12:22 walked in- friend at bedside; EKG done and ok; CXR and lab pending; NTG nd ASA ordered; will monitor and recheck 11/21/18 12:50 recheck post meds; pain reduced to 2/4; BP improved; resting comfortably with friend; CBC, CXR and INR ok; will continue to monitor and recheck 11/21/18 13:14 recheck patient; pain resolved and now a 0/10; feels well; no symptoms; labs all back and [id number] wnl; lytes ok; pBNP ok; friend at bedside; will consult with Dr Armas for disposition; results shared with patient; vS ok 11/21/18 13:34 Dr Armas consulted and will admit to OBs; patient notified Blood Culture(s) Obtained: No Antibiotics given: No Discussed with : Pawel (consulted and will admit to OBs) Will see patient in: hospital (observation) Counseled pt/family regarding: lab results, diagnosis, need for follow-up, rad results - Departure Departure Disposition: Observation Clinical Impression: Anginal chest pain at rest, Hypertension, Anticoagulant long-term use Condition: Serious Critical Care Time: No Referrals: KIERSTEN ARMAS [Primary Care Provider] - Instructions: Angina (DC)
[2018-11-21] MEDS ORDERED: BABY ASPIRIN 81 MG CHEW ONE (12:21)
[2018-11-21] MEDS ORDERED: NITRO-BID 2% UD PACKETS ONE (12:21)
[2018-11-21 12:33] LABS: Basophil (Absolute #) 0.08 (0-0.4); Eosinophil (Absolute #) 0.15 (0-0.5); Granulocyte Absolute (ANC) 4.67 (1.4-6.9); Granulocytes % 61.2 % (36.0-66.0); Hematocrit 41.2 % (35-47); Hemoglobin 14.2 gm/dl (12.0-16.0); Lymphocyte (Absolute #) 1.73 (1.0-4.6); Lymphocytes % 22.6 % (24.0-44.0); Mean Cell Volume 94.3 fl (78-100); Mean Corpuscular Hemoglobin 32.5 pg (26-32); Mean Corpuscular Hgb Concent. 34.5 g/dl (32-36); Mean Platelet Volume 10.7 fl (6-9.5); Monocyte (Absolute #) 1.01 (0.0-1.3); Monocytes % 13.2 % (0.0-12.0); Platelet Count 216 K/mm3 (150-450); Red Blood Count 4.37 M/mm3 (4.1-5.4); Red Cell Distribution Width 13.3 % (11.5-14.0); White Blood Count 7.6 K/mm3 (4.0-10.5)
[2018-11-21 12:41] LABS: INR 1.19 (0.8-3.0); PROTIME 13.5 SECONDS (9.95-12.35)
--- NOTE | 2018-11-21 12:47 | XRAY ---
Exam: AP upright portable chest film from 11/21/2018. Comparison: AP upright portable chest film from 05/25/2017. Indication: 83-year-old female with chest pain and shortness of breath. Nonsmoker. Findings: The patient is mildly rotated toward the left. The heart size is normal. Mild atherosclerotic vascular calcification is seen within the aortic knob. There is slight tortuosity of the descending thoracic aorta. Some chronic central bronchial wall thickening is again seen. I see no evidence of abnormal lymphadenopathy within the mediastinum or hermes. There are some tiny bilateral scattered calcified granulomas within each lung. No air space infiltrates, vascular congestion, pneumothorax, or pleural fluid is seen. Mild biapical pleural thickening/scarring, right greater than left, is seen. Surgical clips consistent with prior cholecystectomy are seen within the right upper outer. EKG leads overlie the chest. No acute osseous process is seen. Impression: 1. Old healed granulomatous disease and chronic central bronchial wall thickening are again noted. This is unchanged from 05/25/2017. 2. No air space infiltrates to suggest pneumonia, CHF/pulmonary edema, or other acute cardiopulmonary disease is seen. The patient is rotated slightly toward the left.
[2018-11-21 13:03] LABS: ALBUMIN 3.9 g/dL (3.5-5.0); ALKALINE PHOSPHATASE 76 U/L (38-126); ANION GAP 12.3 MEQ/L (5-15); BLOOD UREA NITROGEN 18 mg/dL (7-17); CHLORIDE 105 mmol/L (98-107); Calcium 9.6 mg/dL (8.4-10.2); Carbon Dioxide 25 mmol/L (22-30); Creatinine 1 0.68 mg/dL (0.52-1.04); Glucose 94 mg/dL (74-106); NT PRO BNP 295 pg/mL (0-1800); Potassium 4.1 mmol/L (3.5-5.1); SGOT/AST 21 U/L (14-36); SGPT/ALT 18 U/L (0-35); SODIUM 138 mmol/L (137-145); Total Protein 6.5 g/dL (6.3-8.2)
[2018-11-21] MEDS ORDERED: Senokot-S Tablet PO PRN (13:42)
[2018-11-21] MEDS ORDERED: MAALOX ES 30 ML UNIT DOSE PO PRN (13:42)
[2018-11-21] MEDS ORDERED: MILK OF MAGNESIA 30 ML PO PRN (13:42)
[2018-11-21] MEDS ORDERED: TYLENOL 325 MG PO PRN (13:42)
[2018-11-21] MEDS ORDERED: Zofran 4 MG/2 ML VIAL IV PRN (13:42)
[2018-11-21] MEDS: NITRO-BID 2% UD PACKETS TOP SCH ×2 (18:31→21:58)
[2018-11-21] MEDS: Toprol-Xl 25MG Tablets PO SCH (21:58)
[2018-11-21] MEDS: ELIQUIS 2.5 MG TABLET PO SCH (21:59)
[2018-11-21] MEDS ORDERED: NON-FORMULARY ITEM (Apixaban [Eliquis] 5 MG) PO SCH (22:00)
[2018-11-22 07:03] LABS: Risk Ratio 4.1
[2018-11-22 07:44] VITALS: BP 99/55; PULSE 67; O2SAT 95
--- NOTE | 2018-11-22 08:53 | PCM.SSS ---
History of Present Illness - Chief Complaint Chief Complaint: chest pain History of Present Illness: is a 83 year old female pt of mine from [facility] with PMHx chronic afib and HTN (sees Dr. Villarreal) who came in yesterday just not feeling right. She did have some chest pain last week, which was 3-4/10 heaviness, no SOB/palpitations/ naausea/diaphoresis. Yesterday she just didn't feel right, couldn't explain it , lasted about 5 min but she thought she should come in. Called Dr. Villarreal's ofc first but he couldn't see her until tomorrow so she came to ER. Her troponin was neg, labs nonacute. EKG sinus rhtyhm, no acute ST changes, unchanged from previous EKG. Since then she has been having a GERBER which she attributes to the nitro patch. She is having 4/10 back pain (near L scapula). All 5 troponins have been neg. I will discharge her to home; advised go ahead and f/u with Dr. Villarreal tomorrow. - Review of Systems Constitutional: Other (feeling "not right") Cardiac: Chest Pain Musculoskeletal: Back Pain, Neck Pain, Other (arm pain) All Other Systems: Reviewed and Negative Medications & Allergies Home Medications: Home Medication List Levothyroxine Sodium 100 Mcg [Synthroid 100 Mcg] 112 mcg PO DAILY 10/03/12 [History Confirmed 11/21/18] Metoprolol Succinate 25 mg Xl* [Toprol-Xl 25MG Tablets] 25 mg PO BID [History Confirmed 11/21/18] Amlodipine Besylate [Norvasc] 2.5 mg PO DAILY 07/02/15 [History Confirmed ] Apixaban [Eliquis] 5 mg PO BID 12/14/16 [History Confirmed 11/21/18] Vitamin B Complex 1 each PO DAILY 05/25/17 [History Confirmed 11/21/18] Allergies/Adverse Reactions: Allergies Allergy/AdvReac Type Severity Reaction Status Date / Time Penicillins Allergy Verified 06/17/17 07:28 Sulfa (Sulfonamide Allergy Verified 06/17/17 07:28 Antibiotics) - Past Medical History Past Medical History: Yes Neurological History: Migraines ENT History: Cataracts Cardiac History: Arrhythmia, High Cholesterol, Hypertension Respiratory History: No Pertinent History Endocrine Medical History: Hypothyroidism Musculoskelatal History: Arthritis GI Medical History: Gallbladder Disease History: No Pertinent History Pyscho-Social History: No Pertinent History Reproductive Disorders: No Pertinent History Comment: MVP. Hodgkin Lymphoma. frequent ocular migraine associated aphasia - Female History Are you now?: No - Past Surgical History Past Surgical History: Yes Neuro Surgical History: No Pertinent History Cardiac History: Cardiac Catheterization Respiratory Surgery: No Pertinent History GI Surgical History: Appendectomy Genitourinary Surgical Hx: No Pertinent History Musculskeletal Surgical Hx: Other Female Surgical History: Hysterectomy, Other Other Surgical History: tonsillectomy,left hand surgery, right knee injected , breast reduction 25 yrs ago , hysterectomy, - Social History Smoking Status: Never smoker Exposure to second hand smoke: No Alcohol: Rarely Drug Use: none Significant Family History: no pertinent family hx - Physical Exam Vital Signs: Vital Signs - 24 hr Temp Pulse Pulse Resp BP Pulse Ox 11/22/18 07:43 97.9 F 67 18 99/55 95 11/22/18 07:27 97 11/22/18 04:00 97.6 F 71 14 117/69 97 11/22/18 00:00 97.7 F 75 21 113/60 96 11/21/18 20:13 96 11/21/18 20:00 97.7 F 75 21 113/60 96 11/21/18 17:29 97 11/21/18 15:51 97.1 F 70 20 140/76 97 11/21/18 15:47 97 11/21/18 14:35 68 16 136/76 98 11/21/18 13:45 96 11/21/18 13:32 98.1 F 70 16 146/84 96 11/21/18 12:57 68 18 146/85 96 11/21/18 12:30 98.0 F 69 18 171/86 98 11/21/18 12:09 98.1 F 75 76 18 170/86 96 Oxygen-Last 24 hours O2 Percentage 2 Liters = 28% O2 Percentage 2 Liters = 28% O2 Percentage 2 Liters = 28% O2 Percentage 2 Liters = 28% General Appearance: no apparent distress, alert Neurologic Exam: oriented x 3, cooperative Eye Exam: eyes nml inspection Ears, Nose, Throat Exam: moist mucous membranes Neck Exam: normal inspection Respiratory Exam: normal breath sounds, lungs clear, No crackles/rales, No rhonchi, No wheezing Cardiovascular Exam: regular rate/rhythm, normal heart sounds, No murmur Gastrointestinal/Abdomen Exam: soft, normal bowel sounds, No tenderness, No distention, No mass, No guarding, No rebound Back Exam: normal inspection, No rash Extremity Exam: normal inspection, No pedal edema, No swelling Skin Exam: normal color, warm, dry, No rash Results - Labs Lab/Micro Results: Lab Results-Last 24 Hours 11/21/18 11/21/18 11/21/18 Range/Units 12:32 12:32 12:32 WBC 7.6 (4.0-10.5) K/mm3 RBC 4.37 (4.1-5.4) M/mm3 Hgb 14.2 (12.0-16.0) gm/dl Hct 41.2 (35-47) % MCV 94.3 (78-100) fl MCH 32.5 H (26-32) pg MCHC 34.5 (32-36) g/dl RDW 13.3 (11.5-14.0) % Plt Count 216 (150-450) K/mm3 MPV 10.7 H (6-9.5) fl Gran % 61.2 (36.0-66.0) % Eos # (Auto) 0.15 (0-0.5) Absolute Lymphs (auto) 1.73 (1.0-4.6) Absolute Monos (auto) 1.01 (0.0-1.3) Lymphocytes % 22.6 L (24.0-44.0) % Monocytes % 13.2 H (0.0-12.0) % Eosinophils % 2.0 (0.00-5.0) % Basophils % 1.0 (0.0-0.4) % Absolute Granulocytes 4.67 (1.4-6.9) Basophils # 0.08 (0-0.4) PT 13.5 H (9.95-12.35) SECONDS INR 1.19 (0.8-3.0) Sodium 138 (137-145) mmol/L Potassium 4.1 (3.5-5.1) mmol/L Chloride 105 (98-107) mmol/L Carbon Dioxide 25 (22-30) mmol/L Anion Gap 12.3 (5-15) MEQ/L BUN 18 H (7-17) mg/dL Creatinine 0.68 (0.52-1.04) mg/dL Estimated GFR > 60.0 ML/MIN Glucose 94 (74-106) mg/dL Calcium 9.6 (8.4-10.2) mg/dL Total Bilirubin 0.70 (0.2-1.3) mg/dL AST 21 (14-36) U/L ALT 18 (0-35) U/L Alkaline Phosphatase 76 (38-126) U/L Troponin I (0.000-0.034) ng/mL NT-Pro-B Natriuret Pep 295 (0-1800) pg/mL Serum Total Protein 6.5 (6.3-8.2) g/dL Albumin 3.9 (3.5-5.0) g/dL Triglycerides (30-150) mg/dL Cholesterol (50-200) mg/dL LDL Cholesterol (30-100) mg/dL HDL Cholesterol (40-60) mg/dL Heart Disease Risk Ratio 11/21/18 11/21/18 11/21/18 Range/Units 12:32 15:08 18:22 WBC (4.0-10.5) K/mm3 RBC (4.1-5.4) M/mm3 Hgb (12.0-16.0) gm/dl Hct (35-47) % MCV (78-100) fl MCH (26-32) pg MCHC (32-36) g/dl RDW (11.5-14.0) % Plt Count (150-450) K/mm3 MPV (6-9.5) fl Gran % (36.0-66.0) % Eos # (Auto) (0-0.5) Absolute Lymphs (auto) (1.0-4.6) Absolute Monos (auto) (0.0-1.3) Lymphocytes % (24.0-44.0) % Monocytes % (0.0-12.0) % Eosinophils % (0.00-5.0) % Basophils % (0.0-0.4) % Absolute Granulocytes (1.4-6.9) Basophils # (0-0.4) PT (9.95-12.35) SECONDS INR (0.8-3.0) Sodium (137-145) mmol/L Potassium (3.5-5.1) mmol/L Chloride (98-107) mmol/L Carbon Dioxide (22-30) mmol/L Anion Gap (5-15) MEQ/L BUN (7-17) mg/dL Creatinine (0.52-1.04) mg/dL Estimated GFR ML/MIN Glucose (74-106) mg/dL Calcium (8.4-10.2) mg/dL Total Bilirubin (0.2-1.3) mg/dL AST (14-36) U/L ALT (0-35) U/L Alkaline Phosphatase (38-126) U/L Troponin I < 0.012 < 0.012 < 0.012 (0.000-0.034) ng/mL NT-Pro-B Natriuret Pep (0-1800) pg/mL Serum Total Protein (6.3-8.2) g/dL Albumin (3.5-5.0) g/dL Triglycerides (30-150) mg/dL Cholesterol (50-200) mg/dL LDL Cholesterol (30-100) mg/dL HDL Cholesterol (40-60) mg/dL Heart Disease Risk Ratio 11/21/18 11/22/18 11/22/18 Range/Units 21:40 00:20 05:18 WBC (4.0-10.5) K/mm3 RBC (4.1-5.4) M/mm3 Hgb (12.0-16.0) gm/dl Hct (35-47) % MCV (78-100) fl MCH (26-32) pg MCHC (32-36) g/dl RDW (11.5-14.0) % Plt Count (150-450) K/mm3 MPV (6-9.5) fl Gran % (36.0-66.0) % Eos # (Auto) (0-0.5) Absolute Lymphs (auto) (1.0-4.6) Absolute Monos (auto) (0.0-1.3) Lymphocytes % (24.0-44.0) % Monocytes % (0.0-12.0) % Eosinophils % (0.00-5.0) % Basophils % (0.0-0.4) % Absolute Granulocytes (1.4-6.9) Basophils # (0-0.4) PT (9.95-12.35) SECONDS INR (0.8-3.0) Sodium (137-145) mmol/L Potassium (3.5-5.1) mmol/L Chloride (98-107) mmol/L Carbon Dioxide (22-30) mmol/L Anion Gap (5-15) MEQ/L BUN (7-17) mg/dL Creatinine (0.52-1.04) mg/dL Estimated GFR ML/MIN Glucose (74-106) mg/dL Calcium (8.4-10.2) mg/dL Total Bilirubin (0.2-1.3) mg/dL AST (14-36) U/L ALT (0-35) U/L Alkaline Phosphatase (38-126) U/L Troponin I < 0.012 < 0.012 (0.000-0.034) ng/mL NT-Pro-B Natriuret Pep (0-1800) pg/mL Serum Total Protein (6.3-8.2) g/dL Albumin (3.5-5.0) g/dL Triglycerides 144 (30-150) mg/dL Cholesterol 151 (50-200) mg/dL LDL Cholesterol 72 (30-100) mg/dL HDL Cholesterol 37 L (40-60) mg/dL Heart Disease Risk Ratio 4.1 - Radiology Impressions Radiology Exams & Impressions: Radiology Procedures Category Date Time Status CHEST 1 VIEW (PORTABLE) Stat Exams 11/21/18 12:12 Completed - Other Procedures and Tests Respiratory Therapy 11/21/18 17:29 Oxygen NASAL CANNULA 2 lpm 11/23/18 05:00 EKG ONCE 11/24/18 05:00 EKG ONCE Assessment/Plan (1) Chest pain Current Visit: Yes Status: Acute Qualifiers: Chest pain type: other chest pain Qualified Code(s): R07.89 - Other chest pain; R07.8 - Other chest pain Assessment & Plan: [place] ruled out with 5 neg troponins. Code(s): R07.9 - CHEST PAIN, UNSPECIFIED (2) Anticoagulant long-term use Current Visit: Yes Status: Chronic Assessment & Plan: stable Code(s): Z79.01 - [employer] (CURRENT) USE OF ANTICOAGULANTS (3) Hypertension Current Visit: Yes Status: Chronic Qualifiers: Hypertension type: essential hypertension Qualified Code(s): I10 - Essential (primary) hypertension Code(s): I10 - ESSENTIAL (PRIMARY) HYPERTENSION Hospital Summary - Hospital Course Hospital Course: is a 83 year old female pt of mine from [facility] with PMHx chronic afib and HTN (sees Dr. Villarreal) who came in yesterday just not feeling right. She did have some chest pain last week, which was 3-4/10 heaviness, no SOB/palpitations/ naausea/diaphoresis. Yesterday she just didn't feel right, couldn't explain it , lasted about 5 min but she thought she should come in. Called Dr. Villarreal's ofc first but he couldn't see her until tomorrow so she came to ER. Her troponin was neg, labs nonacute. EKG sinus rhtyhm, no acute ST changes, unchanged from previous EKG. Since then she has been having a GERBER which she attributes to the nitro patch. She is having 4/10 back pain (near L scapula). All 5 troponins have been neg. I will discharge her to home; advised go ahead and f/u with Dr. Villarreal tomorrow. - Vitals & Intake/Output Vital Signs: Vital Signs Temperature 97.9 F 11/22/18 07:43 Pulse Rate 67 11/22/18 07:43 Respiratory Rate 18 11/22/18 07:43 Blood Pressure 99/55 11/22/18 07:43 O2 Sat by Pulse Oximetry 95 11/22/18 07:43 Oxygen-Last Documented O2 Percentage 2 Liters = 28% Intake & Output: Intake & Output 11/19/18 11/20/18 11/21/18 11/22/18 11:59 11:59 11:59 11:59 Intake Total 600 Balance 600 Weight 71.3 kg - Lab Result Diagrams: 11/21/18 12:32 11/21/18 12:32 Lab Results-Last 24 Hrs: Lab Results-Last 24 Hours 11/21/18 11/21/18 11/21/18 Range/Units 12:32 12:32 12:32 WBC 7.6 (4.0-10.5) K/mm3 RBC 4.37 (4.1-5.4) M/mm3 Hgb 14.2 (12.0-16.0) gm/dl Hct 41.2 (35-47) % MCV 94.3 (78-100) fl MCH 32.5 H (26-32) pg MCHC 34.5 (32-36) g/dl RDW 13.3 (11.5-14.0) % Plt Count 216 (150-450) K/mm3 MPV 10.7 H (6-9.5) fl Gran % 61.2 (36.0-66.0) % Eos # (Auto) 0.15 (0-0.5) Absolute Lymphs (auto) 1.73 (1.0-4.6) Absolute Monos (auto) 1.01 (0.0-1.3) Lymphocytes % 22.6 L (24.0-44.0) % Monocytes % 13.2 H (0.0-12.0) % Eosinophils % 2.0 (0.00-5.0) % Basophils % 1.0 (0.0-0.4) % Absolute Granulocytes 4.67 (1.4-6.9) Basophils # 0.08 (0-0.4) PT 13.5 H (9.95-12.35) SECONDS INR 1.19 (0.8-3.0) Sodium 138 (137-145) mmol/L Potassium 4.1 (3.5-5.1) mmol/L Chloride 105 (98-107) mmol/L Carbon Dioxide 25 (22-30) mmol/L Anion Gap 12.3 (5-15) MEQ/L BUN 18 H (7-17) mg/dL Creatinine 0.68 (0.52-1.04) mg/dL Estimated GFR > 60.0 ML/MIN Glucose 94 (74-106) mg/dL Calcium 9.6 (8.4-10.2) mg/dL Total Bilirubin 0.70 (0.2-1.3) mg/dL AST 21 (14-36) U/L ALT 18 (0-35) U/L Alkaline Phosphatase 76 (38-126) U/L Troponin I (0.000-0.034) ng/mL NT-Pro-B Natriuret Pep 295 (0-1800) pg/mL Serum Total Protein 6.5 (6.3-8.2) g/dL Albumin 3.9 (3.5-5.0) g/dL Triglycerides (30-150) mg/dL Cholesterol (50-200) mg/dL LDL Cholesterol (30-100) mg/dL HDL Cholesterol (40-60) mg/dL Heart Disease Risk Ratio 11/21/18 11/21/18 11/21/18 Range/Units 12:32 15:08 18:22 WBC (4.0-10.5) K/mm3 RBC (4.1-5.4) M/mm3 Hgb (12.0-16.0) gm/dl Hct (35-47) % MCV (78-100) fl MCH (26-32) pg MCHC (32-36) g/dl RDW (11.5-14.0) % Plt Count (150-450) K/mm3 MPV (6-9.5) fl Gran % (36.0-66.0) % Eos # (Auto) (0-0.5) Absolute Lymphs (auto) (1.0-4.6) Absolute Monos (auto) (0.0-1.3) Lymphocytes % (24.0-44.0) % Monocytes % (0.0-12.0) % Eosinophils % (0.00-5.0) % Basophils % (0.0-0.4) % Absolute Granulocytes (1.4-6.9) Basophils # (0-0.4) PT (9.95-12.35) SECONDS INR (0.8-3.0) Sodium (137-145) mmol/L Potassium (3.5-5.1) mmol/L Chloride (98-107) mmol/L Carbon Dioxide (22-30) mmol/L Anion Gap (5-15) MEQ/L BUN (7-17) mg/dL Creatinine (0.52-1.04) mg/dL Estimated GFR ML/MIN Glucose (74-106) mg/dL Calcium (8.4-10.2) mg/dL Total Bilirubin (0.2-1.3) mg/dL AST (14-36) U/L ALT (0-35) U/L Alkaline Phosphatase (38-126) U/L Troponin I < 0.012 < 0.012 < 0.012 (0.000-0.034) ng/mL NT-Pro-B Natriuret Pep (0-1800) pg/mL Serum Total Protein (6.3-8.2) g/dL Albumin (3.5-5.0) g/dL Triglycerides (30-150) mg/dL Cholesterol (50-200) mg/dL LDL Cholesterol (30-100) mg/dL HDL Cholesterol (40-60) mg/dL Heart Disease Risk Ratio 11/21/18 11/22/18 11/22/18 Range/Units 21:40 00:20 05:18 WBC (4.0-10.5) K/mm3 RBC (4.1-5.4) M/mm3 Hgb (12.0-16.0) gm/dl Hct (35-47) % MCV (78-100) fl MCH (26-32) pg MCHC (32-36) g/dl RDW (11.5-14.0) % Plt Count (150-450) K/mm3 MPV (6-9.5) fl Gran % (36.0-66.0) % Eos # (Auto) (0-0.5) Absolute Lymphs (auto) (1.0-4.6) Absolute Monos (auto) (0.0-1.3) Lymphocytes % (24.0-44.0) % Monocytes % (0.0-12.0) % Eosinophils % (0.00-5.0) % Basophils % (0.0-0.4) % Absolute Granulocytes (1.4-6.9) Basophils # (0-0.4) PT (9.95-12.35) SECONDS INR (0.8-3.0) Sodium (137-145) mmol/L Potassium (3.5-5.1) mmol/L Chloride (98-107) mmol/L Carbon Dioxide (22-30) mmol/L Anion Gap (5-15) MEQ/L BUN (7-17) mg/dL Creatinine (0.52-1.04) mg/dL Estimated GFR ML/MIN Glucose (74-106) mg/dL Calcium (8.4-10.2) mg/dL Total Bilirubin (0.2-1.3) mg/dL AST (14-36) U/L ALT (0-35) U/L Alkaline Phosphatase (38-126) U/L Troponin I < 0.012 < 0.012 (0.000-0.034) ng/mL NT-Pro-B Natriuret Pep (0-1800) pg/mL Serum Total Protein (6.3-8.2) g/dL Albumin (3.5-5.0) g/dL Triglycerides 144 (30-150) mg/dL Cholesterol 151 (50-200) mg/dL LDL Cholesterol 72 (30-100) mg/dL HDL Cholesterol 37 L (40-60) mg/dL Heart Disease Risk Ratio 4.1 - Radiology Exams Ordered Rad Exams-Entire Visit: Radiology Procedures Category Date Time Status CHEST 1 VIEW (PORTABLE) Stat Exams 11/21/18 12:12 Completed - Procedures and Test Procedures and Tests throughout Hospitalization: Therapy Orders & Screens 11/21/18 17:29 Oxygen NASAL CANNULA 2 lpm Comment: Diagnosis: chest pain 11/21/18 20:09 EKG ONCE Comment: Diagnosis: chest pain 11/22/18 05:00 EKG ONCE Comment: Diagnosis: chest pain 11/23/18 05:00 EKG ONCE Comment: Diagnosis: chest pain 11/24/18 05:00 EKG ONCE Comment: Diagnosis: chest pain - Discharge Disposition: Home, Self-Care Condition: Stable Prescriptions: Continue Metoprolol Succinate 25 mg Xl* [Toprol-Xl 25MG Tablets] 25 mg PO BID Levothyroxine Sodium 100 Mcg [Synthroid 100 Mcg] 112 mcg PO DAILY Amlodipine Besylate [Norvasc] 2.5 mg PO DAILY Apixaban [Eliquis] 5 mg PO BID Vitamin B Complex 1 each PO DAILY Follow up with: KIERSTEN HELMS [Primary Care Provider] - 1 Week
[2018-11-22] MEDS: Toprol-Xl 25MG Tablets PO SCH (09:28)
[2018-11-22] MEDS: ELIQUIS 2.5 MG TABLET PO SCH (09:28)
[2018-11-22] MEDS ORDERED: SYNTHROID 100 MCG PO SCH (10:00)
[2018-11-22] MEDS ORDERED: VITA-BEE WITH C PO SCH (10:00)
[2018-11-22] MEDS ORDERED: NON-FORMULARY ITEM (Vitamin B Complex [Vitamin B Complex] 1 EACH) PO SCH (10:00)
[2018-11-22] MEDS ORDERED: NON-FORMULARY ITEM (Amlodipine Besylate [Norvasc] 2.5 MG) PO SCH (10:00)
[2018-11-22] MEDS ORDERED: SYNTHROID 112 MCG PO SCH (10:00)
[2018-11-22] MEDS ORDERED: NORVASC 5 MG PO SCH (10:00)
== END 2018-11-22 09:55 | disposition home or self-care (01) ==
LOC: ED 12:02 → MED SURG 15:15
PROVIDERS: ADMIT Family Medicine; ATTEND Family Medicine
DX: R07.9 Chest pain, unspecified (principal); R51 Headache; I10 Essential (primary) hypertension; I48.91 Unspecified atrial fibrillation; M54.9 Dorsalgia, unspecified; E78.00 Pure hypercholesterolemia, unspecified; Z79.01 Long term (current) use of anticoagulants; Z79.899 Other long term (current) drug therapy
CPT/HCPCS: 36000; 36415; 71045; 80053; 80061; 83721; 83880; 84484; 85025; 85610; 93005; 93041; 93268; 94760; 94762; 96360; 96361; 99285; G0378; 96374; A9270-GY

== ENCOUNTER 2021-06-02 14:01 | Emergency (ER) | payer MEDICARE ==
--- NOTE | 2021-06-02 14:58 | XRAY ---
Indication: Left lower extremity numbness. Multiple contiguous axial images obtained through the head without contrast. Comparison: May 25, 2017. Again age-appropriate global atrophy and mild/moderate periventricular degenerative micro-ischemia bilaterally. No acute intracranial hemorrhage, abnormal extra-axial fluid collection, or mass effect. Fourth ventricle is midline without hydrocephalus. Bony calvarium intact. Visualized paranasal sinuses and mastoid air cells are clear. Impression: Continued nonacute senile brain.
[2021-06-02 15:05] VITALS: BP 122/65; PULSE 71; O2SAT 98
[2021-06-02 15:17] LABS: Absolute Neutrophil Ct (ANC) 4.45 (1.4-6.9); Basophil (Absolute #) 0.09 (0-0.4); Eosinophil % 1.7 % (0.00-5.0); Eosinophil (Absolute #) 0.12 (0-0.5); Hematocrit 39.8 % (35-47); Hemoglobin 13.2 gm/dl (12.0-16.0); Lymphocyte (Absolute #) 1.35 (1.0-4.6); Lymphocytes % 19.6 % (24.0-44.0); Mean Cell Volume 96.8 fl (78-100); Mean Corpuscular Hemoglobin 32.1 pg (26-32); Mean Corpuscular Hgb Concent. 33.2 g/dl (32-36); Monocyte (Absolute #) 0.88 (0.0-1.3); Monocytes % 12.8 % (0.0-12.0); Neutrophil % 64.6 % (36.0-66.0); Platelet Count 225 K/mm3 (150-450); Red Blood Count 4.11 M/mm3 (4.1-5.4); Red Cell Distribution Width 13.3 % (11.5-14.0); White Blood Count 6.9 K/mm3 (4.0-10.5)
--- NOTE | 2021-06-02 15:18 | ERPHSYRPT ---
- History of Present Illness Source: patient Exam Limitations: no limitations Patient Subjective Stated Complaint: " My left leg has been numb for the past 3 hours, my hands have been going numb and I feel short of breath. " Triage Nursing Assessment: Pt presents to ER with complaints of left leg numbness x 3 hours. States has had intermittent numbness to bilateral hands lately but her PCP doesn't seem concerned. Pt is alert and oriented x 3. Pt skin is pink, warm, and dry. Pulses strong and present in bilateral lower extremities. Pt respirations are slightly labored. Lungs clear throughout. Pt complaints of mild shortness of breath. Pt is able to ambulate without assistance. 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 Sensation is a little impaired on left lower extermity. Physician History: 84 yo wf had some LLE numbness and R hand numbness earlier today which has resolved. Pt is on Eliquis for Afib. Jeremy denies GERBER/focal weakness/chest pain/dyspnea/N/V/D/melena/hematochezia. Pt's symptoms have since resolved. Timing/Duration: today Severity: mild Character of Deficits: altered sensation Deficits: no difficulties Baseline/Normal Cognition: alert oriented x 3 Current Cognition: alert oriented x 3 Baseline Gait: walks w/o assistance Associated Symptoms: numbness/tingling in legs/feet, paresthesia, No confusion, No fatigue, No fever, No chills, No loss of consciousness, No nausea, No vomiting, No weakness, No insomnia, No muscle spasms, No ringing in ears, No seizures, No slurred speech, No trouble walking, No vision changes, No chest pain Allergies/Adverse Reactions: Penicillins Allergy (Verified 06/02/21 14:18) Sulfa (Sulfonamide Antibiotics) Allergy (Verified 06/02/21 14:18) Home Medications: Levothyroxine Sodium 100 Mcg [Synthroid 100 Mcg] 125 mcg PO DAILY 10/03/12 [History] Metoprolol Succinate 25 mg Xl* [Toprol-Xl 25MG Tablets] 25 mg PO BID 10/03/12 [History] Amlodipine Besylate [Norvasc] 2.5 mg PO DAILY 07/02/15 [History] Apixaban [Eliquis] 5 mg PO BID 08/14/17 [History] Vitamin B Complex 1 each PO DAILY 05/25/17 [History] Hx Tetanus, Diphtheria Vaccination/Date Given: Yes Hx Influenza Vaccination/Date Given: Yes Hx Pneumococcal Vaccination/Date Given: Yes Immunizations Up to Date: Yes Travel Risk - International Travel Have you traveled outside of the country in past 3 weeks: No - Coronavirus Screening Are you exhibiting any of the following symptoms?: No Close contact with a COVID-19 positive Pt in past 14-21 Days: No - Vaccine Status Have you recieved a Covid-19 vaccination: Yes Laundry Machine Tender: Moderna - Vaccination Dates Date of 2cond Vaccination (if applicable): 2020 - Review of Systems Constitutional: No Symptoms Eyes: No Symptoms Ears, Nose, & Throat: No Symptoms Respiratory: No Symptoms Cardiac: No Symptoms Abdominal/Gastrointestinal: No Symptoms Genitourinary Symptoms: No Symptoms Musculoskeletal: No Symptoms Skin: No Symptoms Neurological: Parasthesia, Sensory Changes, No Dizziness, No Focal Weakness, No Gait Changes, No Headache, No Irritability, No Lethargy, No Paralysis, No Seizure, No Speech Changes, No Tics, No Tremors, No Vertigo Psychological: No Symptoms Endocrine: No Symptoms Hematologic/Lymphatic: No Symptoms Immunological/Allergic: No Symptoms - Past Medical History Pertinent Past Medical History: Yes Neurological History: Migraines ENT History: Cataracts Cardiac History: Arrhythmia, Hypertension Respiratory History: No Pertinent History Endocrine Medical History: Hypothyroidism Musculoskeletal History: Arthritis GI Medical History: Gallbladder Disease History: No Pertinent History Psycho-Social History: No Pertinent History Female Reproductive Disorders: No Pertinent History Other Medical History: MVP. Hodgkin Lymphoma. frequent ocular migraine associated aphasia - Past Surgical History Past Surgical History: Yes Neuro Surgical History: No Pertinent History Cardiac: Cardiac Catheterization Respiratory: No Pertinent History Gastrointestinal: Appendectomy Genitourinary: No Pertinent History Musculoskeletal: Other Female Surgical History: Hysterectomy, Other Other Surgical History: tonsillectomy,left hand surgery, right knee injected , breast reduction 25 yrs ago , hysterectomy, - Social History Smoking Status: Never smoker Exposure to second hand smoke: No Alcohol Use: Socially Drug Use: none Patient Lives Alone: Yes Significant Family History: no pertinent family hx - Nursing Vital Signs Nursing Vital Signs: Initial Vital Signs Temperature 98.3 F 06/02/21 14:07 Pulse Rate 80 06/02/21 14:07 Respiratory Rate 18 06/02/21 14:07 Blood Pressure 143/75 06/02/21 14:07 O2 Sat by Pulse Oximetry 96 06/02/21 14:07 Pain Scale Pain Intensity 0 Mildly hypertensive - Kd Coma Scale Best Eye Response (Kd): (4) open spontaneously Best Verbal Response ([place]): (5) oriented Best Motor Response (Kd): (6) obeys commands [place] Total: 15 - Physical Exam General Appearance: no apparent distress Eye Exam: bilateral eye: normal inspection, PERRL, EOMI Ears, Nose, Throat Exam: normal ENT inspection, TMs normal, pharynx normal, moist mucous membranes Neck Exam: normal inspection, non-tender, supple, full range of motion, No meningismus, No mass, No Brudzinski, No Kernig's, No carotid bruit, No JVD Respiratory: normal breath sounds, lungs clear, airway intact, No chest tenderness, No respiratory distress Cardiovascular: regular rate/rhythm, murmur (3/6 RAJENDRA) Gastrointestinal: soft, normal bowel sounds Back Exam: normal inspection, normal range of motion, No CVA tenderness, No vertebral tenderness Extremity Exam: normal inspection, normal range of motion Peripheral Pulses: carotid (R): 2+, carotid (L): 2+ Mental Status: alert, oriented x 3, cooperative metalizer Exam: normal hearing, normal speech, PERRL Coordination/Gait: normal finger to nose, normal cerebellar function, negative Romberg's sign Motor/Sensory: no motor deficit, no sensory deficit, no pronator drift, negative Babinski's sign DTR: bicep (R): 2+, bicep (L): 2+, knee (R): 2+, knee (L): 2+ Skin Exam: normal color, warm, dry, No rash SpO2 Interpretation: normal SpO2: 98 O2 Delivery: Room Air - Course EKG Interpreted by Me: RATE (NSR/R78/Borderline prolonged QTc/1st degree AV block/No acute ST changes) - CT Exams Head CT Interpretation: Discussed w/radiologist (Nothing acute) Ordered Tests: Active Orders 24 hr Category Date Time Status EKG-ER Only STAT Care 06/02/21 14:29 Completed NPO (ED) STAT Care 06/02/21 14:29 Completed HEAD WITHOUT CONTRAST [CT] Stat Exams 06/02/21 14:30 Completed CBC W DIFF Stat Lab 06/02/21 15:00 Completed CMP Stat Lab 06/02/21 15:00 Completed PROTIME WITH INR Stat Lab 06/02/21 15:00 Completed PTT Stat Lab 06/02/21 15:00 Completed TROPONIN Q3H Lab 06/02/21 15:00 Completed Lab/Rad Data: Laboratory Result Diagrams 06/02/21 15:00 06/02/21 15:00 Laboratory Results 06/02/21 06/02/21 06/02/21 Range/Units 15:00 15:00 15:00 WBC (4.0-10.5) K/mm3 RBC (4.1-5.4) M/mm3 Hgb (12.0-16.0) gm/dl Hct (35-47) % MCV (78-100) fl MCH (26-32) pg MCHC (32-36) g/dl RDW (11.5-14.0) % Plt Count (150-450) K/mm3 MPV (7.5-11.0) fl Gran % (36.0-66.0) % Eos # (Auto) (0-0.5) Absolute Lymphs (auto) (1.0-4.6) Absolute Monos (auto) (0.0-1.3) Lymphocytes % (24.0-44.0) % Monocytes % (0.0-12.0) % Eosinophils % (0.00-5.0) % Basophils % (0.0-0.4) % Absolute Granulocytes (1.4-6.9) Basophils # (0-0.4) PT 13.9 H (9.4-12.5) SECONDS INR 1.18 (0.8-3.0) APTT 36.2 (25.1-36.5) SECONDS Sodium 140 (137-145) mmol/L Potassium 3.8 (3.5-5.1) mmol/L Chloride 105 (98-107) mmol/L Carbon Dioxide 28 (22-30) mmol/L Anion Gap 10.3 (5-15) MEQ/L BUN 18 H (7-17) mg/dL Creatinine 0.92 (0.52-1.04) mg/dL Estimated GFR > 60.0 ML/MIN Glucose 96 (74-106) mg/dL Calcium 9.3 (8.4-10.2) mg/dL Total Bilirubin 0.80 (0.2-1.3) mg/dL AST 20 (14-36) U/L ALT 17 (0-35) U/L Alkaline Phosphatase 78 (38-126) U/L Troponin I < 0.012 (0.000-0.034) ng/mL Serum Total Protein 7.0 (6.3-8.2) g/dL Albumin 4.2 (3.5-5.0) g/dL 06/02/21 Range/Units 15:00 WBC 6.9 (4.0-10.5) K/mm3 RBC 4.11 (4.1-5.4) M/mm3 Hgb 13.2 (12.0-16.0) gm/dl Hct 39.8 (35-47) % MCV 96.8 (78-100) fl MCH 32.1 H (26-32) pg MCHC 33.2 (32-36) g/dl RDW 13.3 (11.5-14.0) % Plt Count 225 (150-450) K/mm3 MPV 11.0 (7.5-11.0) fl Gran % 64.6 (36.0-66.0) % Eos # (Auto) 0.12 (0-0.5) Absolute Lymphs (auto) 1.35 (1.0-4.6) Absolute Monos (auto) 0.88 (0.0-1.3) Lymphocytes % 19.6 L (24.0-44.0) % Monocytes % 12.8 H (0.0-12.0) % Eosinophils % 1.7 (0.00-5.0) % Basophils % 1.3 (0.0-0.4) % Absolute Granulocytes 4.45 (1.4-6.9) Basophils # 0.09 (0-0.4) PT (9.4-12.5) SECONDS INR (0.8-3.0) APTT (25.1-36.5) SECONDS Sodium (137-145) mmol/L Potassium (3.5-5.1) mmol/L Chloride (98-107) mmol/L Carbon Dioxide (22-30) mmol/L Anion Gap (5-15) MEQ/L BUN (7-17) mg/dL Creatinine (0.52-1.04) mg/dL Estimated GFR ML/MIN Glucose (74-106) mg/dL Calcium (8.4-10.2) mg/dL Total Bilirubin (0.2-1.3) mg/dL AST (14-36) U/L ALT (0-35) U/L Alkaline Phosphatase (38-126) U/L Troponin I (0.000-0.034) ng/mL Serum Total Protein (6.3-8.2) g/dL Albumin (3.5-5.0) g/dL - Progress Progress Note: 06/02/21 15:50 Pt wo focal weakness/chest pain/dyspnea in ER/[facility] 15 during entire stay. Counseled pt/family regarding: lab results, diagnosis, need for follow-up, rad results - Departure Departure Disposition: Home Clinical Impression: Paresthesia Condition: Stable Critical Care Time: No Referrals: JUAN ZENDEJAS DO [Primary Care Provider] - Follow up/PCP as directed Instructions: Paresthesias (DC) Additional Instructions: Continue current meds Follow up with your family MD in 1-2 days Return to ER for focal weakness/worsening headache/chest pain/shortness of breath
[2021-06-02 15:22] LABS: INR 1.18 (0.8-3.0); PROTIME 13.9 SECONDS (9.4-12.5)
[2021-06-02 15:25] LABS: PTT 36.2 SECONDS (25.1-36.5)
[2021-06-02 15:26] LABS: ALBUMIN 4.2 g/dL (3.5-5.0); ALKALINE PHOSPHATASE 78 U/L (38-126); ANION GAP 10.3 MEQ/L (5-15); BLOOD UREA NITROGEN 18 mg/dL (7-17); CHLORIDE 105 mmol/L (98-107); Calcium 9.3 mg/dL (8.4-10.2); Carbon Dioxide 28 mmol/L (22-30); Creatinine 1 0.92 mg/dL (0.52-1.04); EST GLOMERULAR FILTRATION RATE > 60.0 ML/MIN; Glucose 96 mg/dL (74-106); Potassium 3.8 mmol/L (3.5-5.1); SGOT/AST 20 U/L (14-36); SGPT/ALT 17 U/L (0-35); SODIUM 140 mmol/L (137-145)
== END 2021-06-02 16:05 | disposition home or self-care (01) ==
LOC: ED 14:01
DX: R20.2 Paresthesia of skin (principal); I10 Essential (primary) hypertension; Z79.01 Long term (current) use of anticoagulants
CPT/HCPCS: 36415; 70450; 80053; 84484; 85025; 85610; 85730; 93005; 99284

== ENCOUNTER 2022-06-08 10:32 | Emergency (ER) | payer MEDICARE ==
[2022-06-08 11:14] VITALS: O2SAT 99
--- NOTE | 2022-06-08 11:34 | ERPHSYRPT ---
- History of Present Illness Time Seen by Provider: 06/08/22 11:29 Source: patient Exam Limitations: no limitations Patient Subjective Stated Complaint: Pt was placing her pants on and lost her footing in her bedroom and hit the back of her head on her dresser Triage Nursing Assessment: Pt brought to the ER by her daughter, hypertensive, rates pain as 7/10, 2 cm laceration to the posterior occipital region of head, denies LOC, denies any other injuries, pt is on blood thinners, pulses normal, skin n/wd, doesn't appear to be in any distress Physician History: Patient is an 87-year-old female presents to our emergency department for evaluation of a laceration status post fall. Patient was at home this morning. Patient was putting on her pants lost her balance in the process. Patient fell backward striking her head on furniture. Patient has a laceration to the right occipital region of her head. No active bleeding. Length of laceration is approximately 2.5 cm. Patient denies loss of consciousness. No neck pain. Cervical spine cleared clinically. Patient has a history of atrial fibrillation currently on Eliquis. Patient currently declined pain medication. Daughter at bedside. Patient voices no other complaints or concerns at this time. The fall was not associated with any sort of cardiovascular or neurologic symptomology. No chest pain or shortness of breath. No nausea vomiting or diaphoresis. No numbness tingling or weakness. Portions of this note were created with voice recognition technology. There may be grammatical, spelling, punctuation or sound alike errors Timing/Duration: today Severity: moderate Modifying Factors: Improves With: nothing Associated Symptoms: denies symptoms Allergies/Adverse Reactions: Penicillins Allergy (Verified 06/08/22 11:15) Sulfa (Sulfonamide Antibiotics) Allergy (Verified 06/08/22 11:15) Home Medications: Levothyroxine Sodium 100 Mcg [Synthroid 100 Mcg] 125 mcg PO DAILY 10/03/12 [History] Metoprolol Succinate 25 mg Xl* [Toprol-Xl 25MG Tablets] 25 mg PO BID 10/03/12 [History] Amlodipine Besylate [Norvasc] 2.5 mg PO DAILY 07/02/15 [History] Apixaban [Eliquis] 5 mg PO BID 12/14/16 [History] Vitamin B Complex 1 each PO DAILY 05/25/17 [History] Cholecalciferol (Vitamin D3) [] 2,000 unit PO DAILY 06/08/22 [History] Hx Tetanus, Diphtheria Vaccination/Date Given: Yes Hx Influenza Vaccination/Date Given: Yes Hx Pneumococcal Vaccination/Date Given: Yes Travel Risk - International Travel Have you traveled outside of the country in past 3 weeks: No - Coronavirus Screening Are you exhibiting any of the following symptoms?: No Close contact with a COVID-19 positive Pt in past 14-21 Days: No - Vaccine Status Have you recieved a Covid-19 vaccination: Yes Nocturnist Physician: Moderna - Vaccination Dates Date of 2cond Vaccination (if applicable): 2020 - Review of Systems Constitutional: No Symptoms, No Fever, No Chills Eyes: No Symptoms Ears, Nose, & Throat: No Symptoms Respiratory: No Symptoms, No Cough, No Dyspnea Cardiac: No Symptoms, No Chest Pain, No Edema, No Syncope Abdominal/Gastrointestinal: No Symptoms, No Abdominal Pain, No Nausea, No Vomiting, No Diarrhea Genitourinary Symptoms: No Symptoms, No Dysuria Musculoskeletal: No Symptoms, No Back Pain, No Neck Pain Skin: No Symptoms, No Rash Neurological: No Symptoms, No Dizziness, No Focal Weakness, No Sensory Changes Psychological: No Symptoms Endocrine: No Symptoms Hematologic/Lymphatic: No Symptoms Immunological/Allergic: No Symptoms All Other Systems: Reviewed and Negative - Past Medical History Pertinent Past Medical History: Yes Neurological History: Migraines ENT History: Cataracts Cardiac History: Arrhythmia, Hypertension Respiratory History: No Pertinent History Endocrine Medical History: Hypothyroidism Musculoskeletal History: Arthritis GI Medical History: Gallbladder Disease History: No Pertinent History Psycho-Social History: No Pertinent History Female Reproductive Disorders: No Pertinent History Other Medical History: MVP. Hodgkin Lymphoma. frequent ocular migraine associated aphasia - Past Surgical History Past Surgical History: Yes Neuro Surgical History: No Pertinent History Cardiac: Cardiac Catheterization Respiratory: No Pertinent History Gastrointestinal: Appendectomy Genitourinary: No Pertinent History Musculoskeletal: Other Female Surgical History: Hysterectomy, Other Other Surgical History: tonsillectomy,left hand surgery, right knee injected , breast reduction 25 yrs ago , hysterectomy, - Social History Smoking Status: Never smoker Exposure to second hand smoke: No Alcohol Use: Socially Drug Use: none Patient Lives Alone: Yes Significant Family History: no pertinent family hx - Nursing Vital Signs Nursing Vital Signs: Initial Vital Signs Temperature 97.7 F 02/06/23 11:03 Pulse Rate 83 06/08/22 11:03 Blood Pressure 146/71 06/08/22 11:03 O2 Sat by Pulse Oximetry 99 06/08/22 11:03 Pain Scale Pain Intensity 7 - Physical Exam General Appearance: no apparent distress, alert Eye Exam: PERRL/EOMI, eyes nml inspection Ears, Nose, Throat Exam: normal ENT inspection, TMs normal, pharynx normal, moist mucous membranes Neck Exam: normal inspection, non-tender, supple, full range of motion Respiratory Exam: normal breath sounds, lungs clear, airway intact, No respiratory distress Cardiovascular Exam: regular rate/rhythm, normal heart sounds, normal peripheral pulses Gastrointestinal/Abdomen Exam: soft, normal bowel sounds, No tenderness, No mass Back Exam: normal inspection, normal range of motion, No CVA tenderness, No vertebral tenderness Extremity Exam: normal inspection, normal range of motion, pelvis stable Neurologic Exam: alert, oriented x 3, cooperative, normal mood/affect, nml cerebellar function, nml station & gait, sensation nml, No motor deficits Skin Exam: normal color, warm, dry, No rash Lymphatic Exam: No adenopathy SpO2 Interpretation: normal SpO2: 99 O2 Delivery: Room Air Procedures - Laceration/Wound Repair Right Occipital Time of Procedure: 11:33 Wound Location: Right (Right occipital region.) Wound Length (cm): 2.5 Wound's Depth, Shape: superficial Wound Explored: clean Irrigated: Yes Hibiclens Prep: Yes Wound Debrided: Debridement indicated Wound Repaired With: Roberto Number of Sutures: 4 Layer Closure?: No Sterile Dressing Applied?: Yes - Course Nursing assessment & vital signs reviewed: Yes - CT Exams Head CT Interpretation: Tele-radiologist Report (CT head reveals new right occipital scalp hematoma/laceration without underlying fracture or acute intracranial abnormalities. Otherwise continued nonacute seen on brain) Ordered Tests: Active Orders 24 hr Category Date Time Status HEAD WITHOUT CONTRAST [CT] Stat Exams 06/08/22 11:19 Completed - Progress Progress: improved Progress Note: Patient 87-year-old female presents emergency department for evaluation status post fall. The fall was mechanical. Patient simply lost her balance while putting her pants on. Evaluation reveals a laceration to the right occipital region. Patient's complaint is acute. Complexity of problem is moderate. Patient is on Eliquis for atrial fibrillation. CT head was ordered to rule out intracranial hemorrhage. CT head negative for intracranial pathology. No significant comorbidities to contribute the patient's current visit today. Patient declined pain medication. Plan of care discussed with patient. She ag siddharth to follow-up with her primary care doctor within 48 hours for reevaluation. Level VM service provided was moderate. Laceration was repaired using 4 roberto. Please refer to procedure note for details. Patient declined lidocaine. Complexity of problem addressed was moderate. Complex and data reviewed/analyzed with moderate. Risk of complication and/or morbidity mortality of patient management is moderate. No critical care time. Patient served as independent historian. The wound was cleaned and irrigated by RN. Patient responded to care well. Time involved in discharge was approximately 10 minutes. Discharge diagnosis is fall and scalp laceration. No antibiotics required for this particular type of laceration. Portions of this note were created with voice recognition technology. There may be grammatical, spelling, punctuation or sound alike errors 06/08/22 12:20 06/08/22 12:27 Counseled pt/family regarding: diagnosis, need for follow-up, rad results - Departure Departure Disposition: Home Clinical Impression: Fall, Laceration Condition: Stable Critical Care Time: No Referrals: JUAN ZENDEJAS, [Primary Care Provider] - Follow up/PCP as directed Additional Instructions: Discharge/Care Plan ROBMARQUITA TITA was seen on 06/08/22 in the Emergency Room. The patient was counseled regarding Diagnosis,Lab results, Imaging studies, need for follow up and when to return to the Emergency Room. Prescriptions given: Discharge Note I have spoken with the patient and/or caregivers. I have explained the patient's condition, diagnosis and treatment plan based on the information available to me at this time. I have answered the patient's and/or caregiver's questions and addressed any concerns. The patient and/or caregivers have as good understanding of the patient's diagnosis, condition and treatment plan as can be expected at this point. The vital signs have been stable. The patient's condition is stable and appropriate for discharge from the emergency department. The patient will pursue further outpatient evaluation with the primary care physician or other designated or consulting physician as outlined in the discharge instructions. The patient and/or caregivers are agreeable to this plan of care and follow-up instructions have been explained in detail. The patient and/or caregivers have received these instruction. The patient/and or caregivers are aware that any significant change in condition or worsening of symptoms should prompt an immediate return to this or the closest emergency department or call 911.
--- NOTE | 2022-06-08 11:58 | XRAY ---
Indication: Head injury following fall. Multiple contiguous axial images obtained through the head without contrast. Comparison: June 02, 2021 Again age-appropriate global atrophy and moderate periventricular degenerative micro-ischemia bilaterally. No acute intracranial hemorrhage, abnormal extra-axial fluid collection, or mass effect. Fourth ventricle is midline without hydrocephalus. New small right occipital scalp hematoma with overlying cutaneous amanda. Bony calvarium intact. Visualized paranasal sinuses and mastoid air cells are clear. Impression: New right occipital scalp hematoma/laceration without underlying fracture or acute intracranial abnormalities. Otherwise continued nonacute senile brain.
[2022-06-08 12:08] VITALS: BP 121/84; PULSE 90
== END 2022-06-08 12:39 | disposition home or self-care (01) ==
LOC: ED 10:32
DX: S01.01XA Laceration without foreign body of scalp, initial encounter (principal); W01.190A Fall on same level from slipping, tripping and stumbling with subsequent striking against furniture, initial encounter; Y92.003 Bedroom of unspecified non-institutional (private) residence as the place of occurrence of the external cause; I10 Essential (primary) hypertension; Z79.01 Long term (current) use of anticoagulants; Z79.899 Other long term (current) drug therapy
CPT/HCPCS: 12001; 70450; 99282